=== PATIENT | female | born 1980 | race Caucasian/White ===

== ENCOUNTER → 2016-12-29 | Outpatient (CLI) | payer MEDICAID, OTHER ==
[~2016-12-29] MED LIST: /LANS30GR; /PANT40TA OR; ABIL20TA2 OR; ACET65TA; ACET65TA OR; ACETAZOLAMIDE; ADVA115INH INH; ALBU0.084 IN; ALBUTEROL INH; ALLE25CA; AMOXICILLIN SUSP; ANTI25TA; BACTDSTA PO; BENA25TA4 PO; BISAC5TA PO; CALC12502; CALCCHW12 OR; CELE20TA OR; CEPACOL; CETI10TA3 PO; CLONI1TA PO; COLA100C2; COLA100C2 OR; DEPA500T2; DRIS1CAP PO; FERR325T OR; FOLI1TAB86 PO; HYDR25T OR; HYDROCORTISONE0.5 %; KLON0.5T OR; LEVA500T; LEVO750T PO; MAGN500T2; MAGNESIUM OXIDE PO; MELA5TAB20 PO; MILKSUS; MIRALEX; MULTIVIT PO; MUPI2OI TOP; NAPR375T2 PO; NAPR500T3 PO; NASONEX; NICO21DI4 TD; NICO21PAT TD; PERC7.5T8 PO; PERM5CR EXT; POTA8CAP; PRIL40CA PO; PROAAER IN; PROZ20CA11 PO; Proair INH; SUBO8MIS SL; SYMB80AE; SYMB80AE IN; THERGRAN; THIA100T; THIA100T OR; TRAZ50TA2 PO; TYLE325T5 PO; VENTAER; VENTAER IN; VENTAER INH; VITA100T; VITA100T OR; VITA100T2 PO; VITAMIN B 12; VITAMIN B 12 SC; VITAMIN B COMPLEX WI OR; VITAMIN D; VITAMIN D50000 UNT; ZOLO50TA PO; advair INH; gabapentin PO; symbicort INH; ventolin INH
[2016-12-29 13:32] LABS: MEAN CORPUSCULAR HEMOGLOBIN 31.9 pg (27.0-33.0); MEAN CORPUSCULAR HGB CONC 34.7 g/dl (32.0-36.5); MEAN CORPUSCULAR VOLUME 92.1 fl (80.0-96.0); RED CELL DISTRIBUTION WIDTH 11.9 % (11.5-14.5)
[2016-12-29 14:02] LABS: ALBUMIN 3.7 GM/DL (3.2-5.2); ALBUMIN/GLOBULIN RATIO 1.37 (1.00-1.93); ALKALINE PHOSPHATASE 84 U/L (45-117); ALT/SGPT 26 U/L (12-78); ANION GAP 7 MEQ/L (8-16); AST/SGOT 14 U/L (15-37); BILIRUBIN,TOTAL 0.6 MG/DL (0.2-1.0); BLOOD UREA NITROGEN 7 MG/DL (7-18); CALCIUM LEVEL 9.1 MG/DL (8.5-10.1); CARBON DIOXIDE LEVEL 27 MEQ/L (21-32); CHLORIDE LEVEL 101 MEQ/L (98-107); CREATININE FOR GFR 0.91 MG/DL (0.55-1.02); GLOMERULAR FILTRATION RATE > 60.0 (>60); GLUCOSE, FASTING 79 MG/DL (70-105); POTASSIUM SERUM 3.4 MEQ/L (3.5-5.1); SODIUM LEVEL 135 MEQ/L (136-145); TOTAL PROTEIN 6.4 GM/DL (6.4-8.2)
--- NOTE | 2016-12-30 15:20 | ECGEPIP ---
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 No significant change compared with 12/08/2013. Electronically Signed On 12-30-2016 15:20:11 EDT by Cody Rollins
== END ==
LOC: M LAB 12:52
PROVIDERS: ATTEND Family Medicine
DX: F11.20 Opioid dependence, uncomplicated (principal)

== ENCOUNTER → 2017-03-10 | Outpatient (CLI) | payer OTHER ==
[2017-03-10 08:55] LABS: BASO % 0.7 % (0.0-1.0); EOS # 0.1 K/mm3 (0.0-0.50); EOS % 3.7 % (0.0-3.0); LARGE UNSTAINED CELL # 0.1 K/mm3 (0.0-0.4); LARGE UNSTAINED CELL % 2.3 % (0.0-4.0); LYMPH # 1.1 K/mm3 (1.5-4.5); LYMPH % 34.7 % (24.0-44.0); MEAN CORPUSCULAR HEMOGLOBIN 31.9 pg (27.0-33.0); MEAN CORPUSCULAR HGB CONC 34.9 g/dl (32.0-36.5); MEAN CORPUSCULAR VOLUME 91.4 fl (80.0-96.0); MONO # 0.2 K/mm3 (0.0-0.8); MONO % 5.3 % (0.0-5.0); NEUTROPHILS # 1.6 K/mm3 (1.8-7.7); NEUTROPHILS % 53.2 % (36.0-66.0); PLATELET COUNT, AUTOMATED 167 k/mm3 (150-450); RED CELL DISTRIBUTION WIDTH 11.9 % (11.5-14.5); WHITE BLOOD COUNT 3.1 K/mm3 (4.0-10.0)
--- NOTE | 2017-03-10 09:00 | REP ---
PA and lateral chest: Comparison is 07/16/2013. The lung vazquez are clear. Cardiac size is normal. The bj, mediastinum and bony thorax unremarkable except for a fracture posterior laterally in the left ninth rib. This was not present previously. There is no pneumothorax. Impression: Left ninth rib fracture, not present previously. Otherwise, negative PA and lateral chest. Signed by Quentin Song MD 03/10/2017 08:51 A
[2017-03-10 09:29] LABS: ALBUMIN 3.3 GM/DL (3.2-5.2); ALBUMIN/GLOBULIN RATIO 1.22 (1.00-1.93); ALKALINE PHOSPHATASE 61 U/L (45-117); ALT/SGPT 22 U/L (12-78); ANION GAP 7 MEQ/L (8-16); AST/SGOT 17 U/L (15-37); BILIRUBIN,TOTAL 0.5 MG/DL (0.2-1.0); BLOOD UREA NITROGEN 8 MG/DL (7-18); CALCIUM LEVEL 8.9 MG/DL (8.5-10.1); CARBON DIOXIDE LEVEL 29 MEQ/L (21-32); CHLORIDE LEVEL 109 MEQ/L (98-107); CREATININE FOR GFR 0.68 MG/DL (0.55-1.02); GLOMERULAR FILTRATION RATE > 60.0 (>60); GLUCOSE, FASTING 84 MG/DL (70-105); POTASSIUM SERUM 4.6 MEQ/L (3.5-5.1); SODIUM LEVEL 145 MEQ/L (136-145)
--- NOTE | 2017-03-10 19:46 | ECGEPIP ---
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
== END ==
LOC: M LAB 08:01
PROVIDERS: ATTEND Family Medicine Addiction Medicine
DX: R07.9 Chest pain, unspecified (principal)

== ENCOUNTER → 2017-03-22 | Outpatient (REF) | payer OTHER ==
[2017-03-22 14:24] LABS: ADD MANUAL DIFFER NO; BASO # 0.1 10^3/uL (0.0-0.2); BASO % 1.3 % (0.0-1.0); DIFF SLIDE NUMBER 242; EOS # 0.2 10^3/uL (0.0-0.50); EOS % 3.6 % (0.0-3.0); IMMATURE GRANULOCYTE % 0.2 % (0-0); LYMPH # 1.8 10^3/uL (1.5-4.5); LYMPH % 40.1 % (24.0-44.0); MEAN CORPUSCULAR HEMOGLOBIN 31.1 pg (27.0-33.0); MEAN CORPUSCULAR HGB CONC 33.3 g/dl (32.0-36.5); MEAN CORPUSCULAR VOLUME 93.2 fl (80.0-96.0); MONO # 0.3 10^3/uL (0.0-0.8); MONO % 7.3 % (0.0-5.0); NEUTROPHILS # 2.1 10^3/uL (1.8-7.7); NEUTROPHILS % 47.5 % (36.0-66.0); PLATELET COUNT, AUTOMATED 195 10^3/uL (150-450); RED CELL DISTRIBUTION WIDTH 11.9 % (11.5-14.5); WHITE BLOOD COUNT 4.5 10^3/uL (4.0-10.0)
== END ==
LOC: M LAB REF 12:14
PROVIDERS: ATTEND Family Medicine Addiction Medicine
DX: D72.819 Decreased white blood cell count, unspecified (principal)

== ENCOUNTER → 2017-03-29 | Outpatient (CLI) | payer OTHER ==
[2017-03-31 08:06] LABS: HEPATITIS C QUANTITATION HCV Not Detected IU/mL (.)
== END ==
LOC: M LAB 12:53
PROVIDERS: ATTEND Nurse Practitioner Adult Health
DX: B19.20 Unspecified viral hepatitis C without hepatic coma (principal)

== ENCOUNTER 2017-04-15 08:03 | Emergency (ER) | payer OTHER ==
[~2017-04-15] VITALS: Ht 170.2 cm; Wt 63.6 kg
[~2017-04-15 08:03] MED LIST changes: -CLONI1TA PO; -MELA5TAB20 PO; -NAPR500T3 PO; -SUBO8MIS SL
[2017-04-15] MEDS ORDERED: SUBO8MIS SL (08:31)
[2017-04-15] MEDS ORDERED: CLONI1TA PO (08:31)
[2017-04-15] MEDS ORDERED: MELA5TAB20 PO (08:31)
[2017-04-15] MEDS ORDERED: ACETAMINOPHEN 325 MG TAB PO ONE (09:00)
[2017-04-15 09:17] LABS: BASO % 1.4 % (0.0-1.0); EOS # 0.1 10^3/uL (0.0-0.50); EOS % 3.7 % (0.0-3.0); LYMPH % 35.3 % (24.0-44.0); MEAN CORPUSCULAR HEMOGLOBIN 31.4 pg (27.0-33.0); MEAN CORPUSCULAR HGB CONC 33.8 g/dl (32.0-36.5); MONO # 0.2 10^3/uL (0.0-0.8); MONO % 7.8 % (0.0-5.0); NEUTROPHILS # 1.5 10^3/uL (1.8-7.7); NEUTROPHILS % 51.8 % (36.0-66.0); PLATELET COUNT, AUTOMATED 171 10^3/uL (150-450); RED CELL DISTRIBUTION WIDTH 12.4 % (11.5-14.5)
[2017-04-15 09:54] LABS: ALBUMIN 3.5 GM/DL (3.2-5.2); ALKALINE PHOSPHATASE 70 U/L (45-117); ALT/SGPT 27 U/L (12-78); ANION GAP 7 MEQ/L (8-16); AST/SGOT 26 U/L (15-37); BILIRUBIN,DIRECT 0.1 MG/DL (0.0-0.2); BILIRUBIN,TOTAL 0.3 MG/DL (0.2-1.0); BLOOD UREA NITROGEN 8 MG/DL (7-18); CALCIUM LEVEL 8.7 MG/DL (8.5-10.1); CARBON DIOXIDE LEVEL 27 MEQ/L (21-32); CHLORIDE LEVEL 107 MEQ/L (98-107); CREATININE FOR GFR 0.78 MG/DL (0.55-1.02); GLOMERULAR FILTRATION RATE > 60.0 (>60); GLUCOSE, FASTING 82 MG/DL (70-105); POTASSIUM SERUM 3.9 MEQ/L (3.5-5.1); SODIUM LEVEL 141 MEQ/L (136-145)
[2017-04-15 10:00] LABS: CONTROL LINE HCG INT CTR LINE PRESENT
[2017-04-15] MEDS ORDERED: NAPROXEN 250 MG TAB PO ONE (11:00)
--- NOTE | 2017-04-15 11:00 | REP ---
PELVIC ULTRASOUND: Real-time sonographic evaluation of the pelvis is performed utilized transabdominal and endovaginal technique. Bladder measures 3.6 x 2.0 x 5.9 cm. Uterus measures 9.1 x 4.3 x 6.0 cm. Endometrial stripe measures 3 mm. Right ovary is not visualized. Left ovary measures 5.3 x 4.0 x 3.7 cm and contains a cyst 4.8 x 3.7 x 3.6 cm. There is blood flow seen in the left ovary with duplex Doppler evaluation with RI 0.51. There is no other evidence of adnexal mass or free fluid. IMPRESSION: Right ovary not visualized. Left ovarian cyst measures 4.8 cm in maximum diameter. No torsion or free fluid. Signed by Quentin Modi MD 04/15/2017 05:46 P
[2017-04-15] MEDS ORDERED: NAPR500T3 PO (11:02)
[2017-04-15 12:43] VITALS: BP 127/77
== END 2017-04-15 12:46 | disposition home or self-care (01) ==
LOC: M ED 08:03
DX: N93.9 Abnormal uterine and vaginal bleeding, unspecified (principal); N83.292 Other ovarian cyst, left side; F19.10 Other psychoactive substance abuse, uncomplicated; Z98.84 Bariatric surgery status; F17.200 Nicotine dependence, unspecified, uncomplicated; Z79.899 Other long term (current) drug therapy; Z91.013 Allergy to seafood; Z91.040 Latex allergy status; Z91.89 Other specified personal risk factors, not elsewhere classified; Z88.0 Allergy status to penicillin; Z88.8 Allergy status to other drugs, medicaments and biological substances; Z88.1 Allergy status to other antibiotic agents

== ENCOUNTER 2017-08-13 09:50 | Emergency (ER) | payer OTHER ==
[2017-08-13] MEDS: KETOROLAC 60 MG/2 ML VIAL (J1885) IM (10:17)
== END 2017-08-13 11:36 | disposition home or self-care (01) ==
LOC: M ED 09:50
DX: M53.3 Sacrococcygeal disorders, not elsewhere classified (principal); G93.41 Metabolic encephalopathy; R07.9 Chest pain, unspecified; J45.909 Unspecified asthma, uncomplicated; R42 Dizziness and giddiness; N39.0 Urinary tract infection, site not specified; M54.9 Dorsalgia, unspecified; F91.8 Other conduct disorders; F41.9 Anxiety disorder, unspecified; F32.9 Major depressive disorder, single episode, unspecified; F19.10 Other psychoactive substance abuse, uncomplicated; Z98.84 Bariatric surgery status; F17.200 Nicotine dependence, unspecified, uncomplicated; Z79.899 Other long term (current) drug therapy; Z88.8 Allergy status to other drugs, medicaments and biological substances; Z88.0 Allergy status to penicillin; Z88.1 Allergy status to other antibiotic agents; Z91.013 Allergy to seafood; Z91.040 Latex allergy status; Z91.89 Other specified personal risk factors, not elsewhere classified
CPT/HCPCS: J1885

== ENCOUNTER 2017-08-14 10:33 | Emergency (ER) | payer OTHER ==
[2017-08-14 11:25] LABS: BASO % 0.9 % (0.0-1.0); EOS # 0.1 10^3/uL (0.0-0.50); EOS % 3.3 % (0.0-3.0); HEMATOCRIT 35.8 % (36.0-47.0); HEMOGLOBIN 12.2 g/dl (12.0-16.0); LYMPH # 1.1 10^3/uL (1.5-4.5); LYMPH % 31.5 % (24.0-44.0); MEAN CORPUSCULAR HEMOGLOBIN 31.9 pg (27.0-33.0); MEAN CORPUSCULAR HGB CONC 34.1 g/dl (32.0-36.5); MEAN CORPUSCULAR VOLUME 93.5 fl (80.0-96.0); MONO # 0.2 10^3/uL (0.0-0.8); MONO % 6.8 % (0.0-5.0); NEUTROPHILS # 1.9 10^3/uL (1.8-7.7); NEUTROPHILS % 57.5 % (36.0-66.0); PLATELET COUNT, AUTOMATED 148 10^3/uL (150-450); RED BLOOD COUNT 3.83 10^6/uL (4.00-5.40); WHITE BLOOD COUNT 3.4 10^3/uL (4.0-10.0)
[2017-08-14 11:48] LABS: ALBUMIN 3.7 GM/DL (3.2-5.2); ALBUMIN/GLOBULIN RATIO 1.19 (1.00-1.93); ALKALINE PHOSPHATASE 74 U/L (45-117); ALT/SGPT 17 U/L (12-78); ANION GAP 5 MEQ/L (8-16); AST/SGOT 19 U/L (7-37); BILIRUBIN,TOTAL 0.2 MG/DL (0.2-1.0); BLOOD UREA NITROGEN 10 MG/DL (7-18); CALCIUM LEVEL 8.5 MG/DL (8.5-10.1); CARBON DIOXIDE LEVEL 26 MEQ/L (21-32); CHLORIDE LEVEL 111 MEQ/L (98-107); CREATININE FOR GFR 0.91 MG/DL (0.55-1.30); GLOMERULAR FILTRATION RATE > 60.0 (>60); GLUCOSE, FASTING 75 MG/DL (70-100); POTASSIUM SERUM 4.2 MEQ/L (3.5-5.1); SODIUM LEVEL 142 MEQ/L (136-145); TOTAL PROTEIN 6.8 GM/DL (6.4-8.2)
[2017-08-14] MEDS: CYCLOBENZAPRINE 10 MG TAB PO (11:58)
[2017-08-14] MEDS: KETOROLAC 30 MG/ML VIAL (J1885) IV (12:39)
== END 2017-08-14 13:24 | disposition home or self-care (01) ==
LOC: M ED 10:33
DX: K62.5 Hemorrhage of anus and rectum (principal); M79.1 Myalgia; E46 Unspecified protein-calorie malnutrition; Z98.84 Bariatric surgery status; F17.200 Nicotine dependence, unspecified, uncomplicated; Z91.013 Allergy to seafood; Z88.1 Allergy status to other antibiotic agents; Z88.0 Allergy status to penicillin; Z91.040 Latex allergy status; Z79.899 Other long term (current) drug therapy
CPT/HCPCS: J1885

== ENCOUNTER → 2017-11-17 | Outpatient (REF) | payer OTHER ==
[2017-11-17 20:56] LABS: CHLAMYDIA DNA AMPLIFICATION NEGATIVE (NEGATIVE); GC DNA AMPLIFICATION NEGATIVE (NEGATIVE)
[2017-11-22 14:13] LABS: HPV HYBRID CAPTURE II Negative (Negative)
== END ==
LOC: M LAB REF 18:06
DX: Z11.3 Encounter for screening for infections with a predominantly sexual mode of transmission (principal)

== ENCOUNTER → 2017-12-26 | Outpatient (CLI) | payer OTHER ==
[2017-12-26 12:53] LABS: HEMATOCRIT 35.7 % (36.0-47.0); HEMOGLOBIN 12.1 g/dl (12.0-15.5); MEAN CORPUSCULAR HEMOGLOBIN 31.5 pg (27.0-33.0); MEAN CORPUSCULAR HGB CONC 33.9 g/dl (32.0-36.5); PLATELET COUNT, AUTOMATED 214 10^3/uL (150-450); RED BLOOD COUNT 3.84 10^6/uL (4.00-5.40); WHITE BLOOD COUNT 4.5 10^3/uL (4.0-10.0)
[2017-12-26 13:26] LABS: CONTROL LINE HCG INT CTR LINE PRESENT; HCG, SERUM QUALITATIVE NEGATIVE (NEGATIVE)
[2017-12-26 13:36] LABS: ALBUMIN/GLOBULIN RATIO 1.48 (1.00-1.93); ALKALINE PHOSPHATASE 107 U/L (45-117); ALT/SGPT 23 U/L (12-78); ANION GAP 6 MEQ/L (8-16); AST/SGOT 15 U/L (7-37); BILIRUBIN,TOTAL 0.4 MG/DL (0.2-1.0); BLOOD UREA NITROGEN 13 MG/DL (7-18); CALCIUM LEVEL 8.5 MG/DL (8.5-10.1); CARBON DIOXIDE LEVEL 28 MEQ/L (21-32); CHLORIDE LEVEL 108 MEQ/L (98-107); CREATININE FOR GFR 1.01 MG/DL (0.55-1.30); GLOMERULAR FILTRATION RATE > 60.0 (>60); GLUCOSE, FASTING 92 MG/DL (70-100); POTASSIUM SERUM 3.7 MEQ/L (3.5-5.1); SODIUM LEVEL 142 MEQ/L (136-145); TOTAL PROTEIN 6.7 GM/DL (6.4-8.2)
[2017-12-26 13:47] LABS: HEPATITIS B SURFACE ANTIGEN NEGATIVE (NEGATIVE)
[2017-12-26 14:15] LABS: HIV 1&2 SCREEN CENTAUR NEGATIVE (NEGATIVE)
[2017-12-26 14:16] LABS: HEPATITIS C VIRUS ABY INDEX > 11.0 INDEX (<0.8)
[2017-12-26 14:40] LABS: CHLAMYDIA DNA AMPLIFICATION NEGATIVE (NEGATIVE); GC DNA AMPLIFICATION NEGATIVE (NEGATIVE)
== END ==
LOC: M LAB 12:03
DX: F11.20 Opioid dependence, uncomplicated (principal)
CPT/HCPCS: 93005

== ENCOUNTER 2018-04-30 12:37 | Emergency (ER) | payer OTHER ==
[2018-04-30] MEDS: METHOCARBAMOL 750 MG TAB PO (14:24)
[2018-04-30] MEDS: KETOROLAC 60 MG/2 ML VIAL (J1885) IM (14:25)
== END 2018-04-30 14:35 | disposition home or self-care (01) ==
LOC: M ED 12:37
DX: M54.41 Lumbago with sciatica, right side (principal); J45.909 Unspecified asthma, uncomplicated; F41.9 Anxiety disorder, unspecified; F33.9 Major depressive disorder, recurrent, unspecified; B19.20 Unspecified viral hepatitis C without hepatic coma; G93.41 Metabolic encephalopathy; Z79.899 Other long term (current) drug therapy; Z79.891 Long term (current) use of opiate analgesic; Z88.0 Allergy status to penicillin; Z88.8 Allergy status to other drugs, medicaments and biological substances; Z91.018 Allergy to other foods; Z91.040 Latex allergy status; F17.210 Nicotine dependence, cigarettes, uncomplicated
CPT/HCPCS: J1885

== ENCOUNTER → 2018-05-23 | Outpatient (CLI) | payer OTHER ==
[2018-05-23 17:30] LABS: ESTIMATED AVERAGE GLUCOSE 100 MG/DL (60-110); HEMOGLOBIN A1c 5.1 %
[2018-05-23 17:34] LABS: BASO # 0.1 10^3/uL (0.0-0.2); BASO % 0.6 % (0.0-1.0); EOS # 0.1 10^3/uL (0.0-0.50); HEMATOCRIT 39.1 % (36.0-47.0); IMMATURE GRANULOCYTE % 0.2 % (0-3.0); LYMPH # 1.8 10^3/uL (1.5-4.5); LYMPH % 22.4 % (24.0-44.0); MEAN CORPUSCULAR HEMOGLOBIN 31.3 pg (27.0-33.0); MEAN CORPUSCULAR HGB CONC 33.2 g/dl (32.0-36.5); MEAN CORPUSCULAR VOLUME 94.2 fl (80.0-96.0); MONO # 0.5 10^3/uL (0.0-0.8); MONO % 6.2 % (0.0-5.0); NEUTROPHILS # 5.6 10^3/uL (1.8-7.7); NEUTROPHILS % 69.6 % (36.0-66.0); PLATELET COUNT, AUTOMATED 199 10^3/uL (150-450); RED BLOOD COUNT 4.15 10^6/uL (4.00-5.40); WHITE BLOOD COUNT 8.1 10^3/uL (4.0-10.0)
[2018-05-23 17:51] LABS: ALBUMIN 3.3 GM/DL (3.2-5.2); ALBUMIN/GLOBULIN RATIO 1.14 (1.00-1.93); ALKALINE PHOSPHATASE 62 U/L (45-117); ALT/SGPT 17 U/L (12-78); ANION GAP 5 MEQ/L (8-16); AST/SGOT 16 U/L (7-37); BILIRUBIN,TOTAL 0.3 MG/DL (0.2-1.0); BLOOD UREA NITROGEN 11 MG/DL (7-18); CALCIUM LEVEL 8.5 MG/DL (8.5-10.1); CARBON DIOXIDE LEVEL 31 MEQ/L (21-32); CHLORIDE LEVEL 108 MEQ/L (98-107); CREATININE FOR GFR 0.94 MG/DL (0.55-1.30); GLOMERULAR FILTRATION RATE > 60.0 (>60); GLUCOSE, FASTING 49 MG/DL (70-100); POTASSIUM SERUM 4.3 MEQ/L (3.5-5.1); RHEUMATOID FACTOR QUANT < 10.0 IU/ML (<15.0); SODIUM LEVEL 144 MEQ/L (136-145); TOTAL PROTEIN 6.2 GM/DL (6.4-8.2)
[2018-05-25 14:16] LABS: ANTINUCLEAR ANTIBODIES DIRECT Negative (Negative)
== END ==
LOC: M LAB 16:19
DX: R20.2 Paresthesia of skin (principal); Z13.9 Encounter for screening, unspecified
CPT/HCPCS: 84443

== ENCOUNTER 2018-06-14 13:38 | Emergency (ER) | payer OTHER ==
[~2018-06-14] VITALS: Ht 170.2 cm; Wt 59.4 kg
[~2018-06-14 13:38] MED LIST changes: +ARNU1INH3 INH; +BUSP1TAB PO; +CLONI1TA PO; +CYCL10TA PO; +DOCU100C16 PO; +IBUP80TA PO; +MELA5TAB20 PO; +NAPR-885 PO; +PARO15TA PO; +ROBA500T PO; +SUBO8MIS SL
[2018-06-14] MEDS ORDERED: MIRT30TA3 (13:46)
[2018-06-14] MEDS ORDERED: ESTR62CR (13:46)
[2018-06-14] MEDS ORDERED: OMEP20CA3 (13:46)
[2018-06-14 14:24] LABS: BASO % 0.8 % (0.0-1.0); EOS # 0.1 10^3/uL (0.0-0.50); EOS % 1.4 % (0.0-3.0); HEMATOCRIT 34.5 % (36.0-47.0); HEMOGLOBIN 11.7 g/dl (12.0-15.5); LYMPH # 1.1 10^3/uL (1.5-4.5); LYMPH % 23.4 % (24.0-44.0); MEAN CORPUSCULAR HEMOGLOBIN 31.6 pg (27.0-33.0); MEAN CORPUSCULAR HGB CONC 33.9 g/dl (32.0-36.5); MEAN CORPUSCULAR VOLUME 93.2 fl (80.0-96.0); MONO # 0.3 10^3/uL (0.0-0.8); MONO % 6.2 % (0.0-5.0); NEUTROPHILS # 3.3 10^3/uL (1.8-7.7); NEUTROPHILS % 67.8 % (36.0-66.0); PLATELET COUNT, AUTOMATED 172 10^3/uL (150-450); WHITE BLOOD COUNT 4.8 10^3/uL (4.0-10.0)
[2018-06-14 14:46] LABS: BLOOD UREA NITROGEN 11 MG/DL (7-18); CALCIUM LEVEL 8.4 MG/DL (8.5-10.1); CARBON DIOXIDE LEVEL 29 MEQ/L (21-32); CHLORIDE LEVEL 111 MEQ/L (98-107); CREATININE FOR GFR 0.87 MG/DL (0.55-1.30); GLOMERULAR FILTRATION RATE > 60.0 (>60); GLUCOSE, FASTING 96 MG/DL (70-100); POTASSIUM SERUM 4.3 MEQ/L (3.5-5.1); SODIUM LEVEL 144 MEQ/L (136-145)
[2018-06-14 15:09] LABS: HCG, SERUM QUANTITATIVE < 1.0 MIU/ML
[2018-06-14] MEDS ORDERED: KETOROLAC TROMETHAMINE 10 MG TAB PO ONE (16:00)
--- NOTE | 2018-06-14 17:08 | REP ---
Clinical: Acute left lower quadrant pain and abnormal bleeding . Technique: Transabdominal pelvic ultrasound followed by transvaginal examination for better evaluation of the endometrium and adnexa with color Doppler evaluation of the ovaries. Findings: Bladder is collapsed. Heterogeneous anteverted uterus measures 8.6 x 4.8 x 5.5 cm . The endometrial complex measures 5.1 mm thickness. No discrete uterine or endometrial abnormalities are appreciated. Bilateral ovaries are normal in appearance and vascularity without evidence for torsion. Right ovary measures 1.8 x 1.3 x 2.2 cm ; R I = 0.59 . Left ovary measures 3.4 x 2.6 x 3.9 cm with 3.3 x 1.6 x 2.6 cm hemorrhagic cyst ; R I = 0.5. Small amount of free fluid in the pelvis. . Impression: 1. Normal uterus and right ovary without torsion. 2. Left ovary includes 3.3 cm hemorrhagic cyst and a moderate amount of free fluid is identified in the pelvis. Correlation with physical examination is recommended. Electronically Signed by Anatoly Prado MD 06/14/2018 05:00 P
[2018-06-14] MEDS ORDERED: KETO10TAB PO (17:15)
[2018-06-14] MEDS ORDERED: CIPR-249 PO (17:15)
[2018-06-14 17:26] VITALS: BP 101/68
--- NOTE | 2018-06-17 08:33 | ED PDOC ---
Post-Departure Follow-Up radiology report faxed to Kenisha Martinez MD Jun 17, 2018 08:33
== END 2018-06-14 17:30 | disposition home or self-care (01) ==
LOC: M ED 13:38
DX: N30.90 Cystitis, unspecified without hematuria (principal); N83.202 Unspecified ovarian cyst, left side; J45.909 Unspecified asthma, uncomplicated; B19.20 Unspecified viral hepatitis C without hepatic coma; Z98.84 Bariatric surgery status; Z79.899 Other long term (current) drug therapy; Z88.0 Allergy status to penicillin; Z88.1 Allergy status to other antibiotic agents; Z88.8 Allergy status to other drugs, medicaments and biological substances; Z91.013 Allergy to seafood; Z91.040 Latex allergy status; F17.210 Nicotine dependence, cigarettes, uncomplicated

== ENCOUNTER → 2018-07-05 | Outpatient (CLI) | payer OTHER ==
[~2018-07-05] MED LIST changes: +CIPR-249 PO; +ESTR62CR; +KETO10TAB PO; +MIRT30TA3; +OMEP20CA3
[2018-07-05 13:37] LABS: HCG, SERUM QUALITATIVE NEGATIVE (NEGATIVE)
[2018-07-05 13:37] LABS: HEMATOCRIT 38.4 % (36.0-47.0); HEMOGLOBIN 12.6 g/dl (12.0-15.5); MEAN CORPUSCULAR HGB CONC 32.8 g/dl (32.0-36.5); MEAN CORPUSCULAR VOLUME 94.3 fl (80.0-96.0); PLATELET COUNT, AUTOMATED 128 10^3/uL (150-450); RED BLOOD COUNT 4.07 10^6/uL (4.00-5.40); WHITE BLOOD COUNT 4.8 10^3/uL (4.0-10.0)
[2018-07-05 13:56] LABS: FOLLICLE STIMULATING HORMONE 4.5 mIU/mL; FREE T4 1.25 NG/DL (0.76-1.46); LUTEINIZING HORMONE 19.4 mIU/mL
== END ==
LOC: M SMT 10:39
PROVIDERS: ATTEND Advanced Practice Midwife
DX: N92.4 Excessive bleeding in the premenopausal period (principal)

== ENCOUNTER → 2018-07-18 | Outpatient (CLI) | payer OTHER ==
--- NOTE | 2018-07-18 16:43 | REP ---
PELVIC ULTRASOUND: Real-time sonographic evaluation of the pelvis was performed utilizing transabdominal and endovaginal technique. The bladder measures 2.0 x 5.6 x 4.9 cm. The uterus measures 9.3 x 4.7 x 5.9 cm. Endometrial thickness is 6 mm with no endometrial fluid collection. Right ovary measures 3.2 x 1.7 x 2.0 cm and left ovary 3.9 x 2.1 x 2.4 cm. Dominant follicle in the right ovary measures 9 mm. There is a complex follicle in the left ovary 1.2 cm in diameter. Previously noted 3.3 cm left ovarian cyst has resolved. There is trace physiologic amount of free fluid. There os no ovarian torsion with blood flow seen in each ovary with duplex Doppler evaluation, RI ovary 0.41 and left ovary 0.47. IMPRESSION: Resolution of complex cyst left ovary. Dominant follicle in each ovary. Trace physiologic amount of free fluid. Electronically Signed by Quentin Modi MD 07/18/2018 04:48 P
== END ==
LOC: M RAD 15:33
PROVIDERS: ATTEND Advanced Practice Midwife
DX: N92.4 Excessive bleeding in the premenopausal period (principal)

== ENCOUNTER → 2018-07-19 | Outpatient (REF) | payer OTHER | LOC: M LAB REF 10:31 | PROVIDERS: ATTEND Advanced Practice Midwife | DX: N92.4 Excessive bleeding in the premenopausal period (principal) ==

== ENCOUNTER → 2018-10-04 | Outpatient (REF) | payer OTHER ==
[~2018-10-04] MED LIST changes: -/PANT40TA OR; -BACTDSTA PO; +MUPI1OIN2 TOP; -MUPI2OI TOP; +NICO21DI3 TD; -NICO21PAT TD; -PERM5CR EXT; +PERM5CRE3 EXT; +PROT1TAB2 OR; +SULF1TAB23 PO
[2018-10-04 13:53] LABS: BASO # 0.1 10^3/uL (0.0-0.2); BASO % 1.4 % (0.0-1.0); EOS # 0.1 10^3/uL (0.0-0.50); EOS % 3.5 % (0.0-3.0); HEMATOCRIT 37.8 % (36.0-47.0); HEMOGLOBIN 12.6 g/dl (12.0-15.5); LYMPH # 1.1 10^3/uL (1.5-4.5); MEAN CORPUSCULAR HEMOGLOBIN 30.5 pg (27.0-33.0); MEAN CORPUSCULAR HGB CONC 33.3 g/dl (32.0-36.5); MEAN CORPUSCULAR VOLUME 91.5 fl (80.0-96.0); MONO # 0.2 10^3/uL (0.0-0.8); MONO % 6.5 % (0.0-5.0); NEUTROPHILS # 2.2 10^3/uL (1.8-7.7); NEUTROPHILS % 59.6 % (36.0-66.0); PLATELET COUNT, AUTOMATED 179 10^3/uL (150-450); RED BLOOD COUNT 4.13 10^6/uL (4.00-5.40); WHITE BLOOD COUNT 3.7 10^3/uL (4.0-10.0)
[2018-10-04 14:05] LABS: ALBUMIN 3.3 GM/DL (3.2-5.2); ALT/SGPT 21 U/L (12-78); BILIRUBIN,TOTAL 0.2 MG/DL (0.2-1.0); BLOOD UREA NITROGEN 15 MG/DL (7-18); CARBON DIOXIDE LEVEL 24 MEQ/L (21-32); CHLORIDE LEVEL 111 MEQ/L (98-107); CHOLESTEROL LEVEL 135 MG/DL (<200); CHOLESTEROL RISK RATIO 2.596 (<5); CREATININE FOR GFR 0.96 MG/DL (0.55-1.30); GLOMERULAR FILTRATION RATE > 60.0 (>60); GLUCOSE, FASTING 120 MG/DL (70-100); HDL CHOLESTEROL 52 MG/DL (>40); LDL CHOLESTEROL 61 MG/DL (<100); NON-HDL-C 83 MG/DL; POTASSIUM SERUM 3.9 MEQ/L (3.5-5.1); SODIUM LEVEL 141 MEQ/L (136-145); TOTAL 25(OH) VITAMIN D 22.7 NG/ML (30.0-100.0); TOTAL PROTEIN 5.7 GM/DL (6.4-8.2); TRIGLYCERIDES LEVEL 109 MG/DL (<150)
[2018-10-04 14:22] LABS: HEMOGLOBIN A1c 5.3 %
[2018-10-06 00:06] LABS: Lyme Disease IgG/IgM Antibodie <0.91 ISR (0.00-0.90); Lyme Disease IgM Ab Quantitati <0.80 index (0.00-0.79)
== END ==
LOC: M LAB REF 12:19
PROVIDERS: ATTEND Family Medicine
DX: Z13.228 Encounter for screening for other metabolic disorders (principal)

== ENCOUNTER → 2018-12-18 | Outpatient (CLI) | payer OTHER ==
[~2018-12-18] MED LIST changes: -OMEP20CA3; +OMEP20CA4
--- NOTE | 2018-12-18 17:49 | REP ---
Clinical: Abnormal uterine bleeding. Technique: Transabdominal pelvic ultrasound followed by transvaginal examination for better evaluation of the endometrium and adnexa with color Doppler evaluation of the ovaries. Comparison: 07/18/2018. Findings: Heterogeneous anteverted uterus measures 8.8 x 4.8 x 5.3 cm. Endometrial complex measures 4.0 mm thickness. No uterine or endometrial abnormalities appreciated. Bilateral ovaries are normal in vascularity without torsion. Right ovary measures 3.4 x 1.8 x 2.2 cm; RI 0.52. Left ovary measures 6.4 x 3.3 x 3.8 cm; RI 0.55 and includes 4.0 x 2.5 x 3.4 cm complex cyst. Small amount of free fluid in the pelvis is nonspecific and possibly physiologic. Impression: 1. Heterogeneous uterus without focal abnormality. Appears similar to prior examination. 2. Left ovary includes 4.0 cm possibly physiologic complex cyst. Consider follow-up examination in 4-6 weeks to evaluate for resolution. Electronically Signed by Anatoly Prado MD 12/18/2018 05:41 P
== END ==
LOC: M RAD 15:55
PROVIDERS: ATTEND Advanced Practice Midwife
DX: N92.4 Excessive bleeding in the premenopausal period (principal)

== ENCOUNTER → 2018-12-18 | Outpatient (CLI) | payer OTHER ==
[~2018-12-18] MED LIST changes: +OMEP1CAP73; -OMEP20CA4; +TYLE650T38 PO
[2018-12-18 16:44] LABS: HEMATOCRIT 35.1 % (36.0-47.0); HEMOGLOBIN 11.4 g/dl (12.0-15.5); MEAN CORPUSCULAR HEMOGLOBIN 31.1 pg (27.0-33.0); MEAN CORPUSCULAR HGB CONC 32.5 g/dl (32.0-36.5); MEAN CORPUSCULAR VOLUME 95.6 fl (80.0-96.0); PLATELET COUNT, AUTOMATED 170 10^3/uL (150-450); RED BLOOD COUNT 3.67 10^6/uL (4.00-5.40); WHITE BLOOD COUNT 3.4 10^3/uL (4.0-10.0)
[2018-12-18 17:12] LABS: HCG, SERUM QUALITATIVE NEGATIVE (NEGATIVE)
[2018-12-18 17:14] LABS: ALBUMIN 3.1 GM/DL (3.2-5.2); ALT/SGPT 11 U/L (12-78); BILIRUBIN,TOTAL 0.2 MG/DL (0.2-1.0); BLOOD UREA NITROGEN 8 MG/DL (7-18); CALCIUM LEVEL 8.5 MG/DL (8.5-10.1); CARBON DIOXIDE LEVEL 28 MEQ/L (21-32); CHLORIDE LEVEL 109 MEQ/L (98-107); CREATININE FOR GFR 1.09 MG/DL (0.55-1.30); GLOMERULAR FILTRATION RATE 59.5 (>60); GLUCOSE, FASTING 100 MG/DL (70-100); POTASSIUM SERUM 3.9 MEQ/L (3.5-5.1); SODIUM LEVEL 141 MEQ/L (136-145)
[2018-12-18 18:02] LABS: HIV 1&2 SCREEN CENTAUR NEGATIVE (NEGATIVE)
[2018-12-18 18:26] LABS: CHLAMYDIA DNA AMPLIFICATION NEGATIVE (NEGATIVE); GC DNA AMPLIFICATION NEGATIVE (NEGATIVE)
--- NOTE | 2018-12-19 07:53 | ECGEPIP ---
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
[2018-12-20 10:54] LABS: HEPATITIS B SURFACE ANTIGEN NEGATIVE (NEGATIVE)
[2018-12-20 11:39] LABS: HEPATITIS C VIRUS ABY INDEX > 11.0 INDEX (<0.8)
== END ==
LOC: M LAB 16:10
PROVIDERS: ATTEND Family Medicine
DX: F11.21 Opioid dependence, in remission (principal)

== ENCOUNTER → 2019-01-12 | Outpatient (REF) | payer OTHER, MEDICAID ==
[~2019-01-12] MED LIST changes: -OMEP1CAP73; +OMEP20CA4
[2019-01-12 19:48] LABS: APPEARANCE, URINE CLOUDY (CLEAR); BACTERIA, URINE AUTO NEGATIVE (NEGATIVE); BILIRUBIN, URINE AUTO NEGATIVE (NEGATIVE); BLOOD, URINE BLOOD NEGATIVE (NEGATIVE); COLOR, URINE AMBER (YELLOW); GLUCOSE, URINE (UA) AUTO NEGATIVE (NEGATIVE); KETONE, URINE AUTO TRACE mg/dL (NEGATIVE); LEUKOCYTE ESTERASE, URINE AUTO NEGATIVE (NEGATIVE); MUCUS, URINE SMALL (NEGATIVE); NITRITE, URINE AUTO NEGATIVE (NEGATIVE); PROTEIN, URINE AUTO NEGATIVE (NEGATIVE); RBC, URINE AUTO 2 /HPF (0-3); SPECIFIC GRAVITY URINE AUTO 1.026 (1.002-1.035); SQUAMOUS EPITHELIAL CELL UR AU 7 /HPF (0-6); WBC, URINE AUTO 4 /HPF (0-3)
== END ==
LOC: M LAB REF 18:31
PROVIDERS: ATTEND Family Medicine
DX: R10.814 Left lower quadrant abdominal tenderness (principal)

== ENCOUNTER 2019-01-16 11:53 | Emergency (ER) | payer MEDICAID, OTHER ==
[~2019-01-16] VITALS: Ht 170.2 cm; Wt 61.4 kg
[~2019-01-16 11:53] MED LIST changes: -TYLE650T38 PO
[2019-01-16 14:43] VITALS: BP 106/70
[2019-01-16] MEDS ORDERED: ACETAMINOPHEN 325 MG TAB PO ONE (15:45)
[2019-01-16] MEDS ORDERED: METHOCARBAMOL 500 MG TAB PO ONE (15:45)
[2019-01-16] MEDS ORDERED: ROBA500T PO (17:15)
[2019-01-16] MEDS ORDERED: TYLE650T38 PO (17:15)
== END 2019-01-16 17:23 | disposition home or self-care (01) ==
LOC: M ED 11:53
DX: M54.5 Low back pain (principal); G89.29 Other chronic pain; B19.9 Unspecified viral hepatitis without hepatic coma; Z98.84 Bariatric surgery status; Z88.1 Allergy status to other antibiotic agents; Z88.0 Allergy status to penicillin; Z88.8 Allergy status to other drugs, medicaments and biological substances; Z91.040 Latex allergy status; Z91.013 Allergy to seafood

== ENCOUNTER → 2019-02-01 | Outpatient (CLI) | payer OTHER ==
[~2019-02-01] MED LIST changes: +TYLE650T38 PO
--- NOTE | 2019-02-01 21:21 | REPVR ---
EXAM: MR Lumbar Spine Without Contrast. EXAM DATE/TIME: 02/01/2019 7:12 PM CLINICAL HISTORY: 38 years old, female; Patient HX: Low back pain, unbalanced gait TECHNIQUE: Imaging protocol: Multiplanar magnetic resonance images of the lumbar spine without intravenous contrast. COMPARISON: No relevant prior studies available. FINDINGS: Vertebrae: There is no fracture. Lumbar vertebra maintain their height and alignment. STIR images demonstrate no evidence of vertebral bone marrow edema or marrow infiltrating lesion. Spinal cord: The lower thoracic spinal cord, conus and cauda equina are normal. L1-L2: No significant disc disease. No significant spinal stenosis. L2-L3: No significant disc disease. No significant spinal stenosis. L3-L4: No significant disc disease. No significant spinal stenosis. L4-L5: No significant disc disease. No significant spinal stenosis. Mild facet and ligament hypertrophy. L5-S1: No significant disc disease. No significant spinal stenosis. Soft tissues: There is no paraspinous or intraspinal mass, hemorrhage or fluid collection. IMPRESSION: 1. No evidence of fracture or acute findings. 2. No evidence of spinal stenosis or significant disc disease. Electronically signed by: Benjamin Byrd On 02/01/2019 21:21:19 PM
== END ==
LOC: M RAD 17:20
PROVIDERS: ATTEND Family Medicine
DX: M54.5 Low back pain (principal)

== ENCOUNTER → 2019-04-17 | Outpatient (REF) | payer OTHER ==
[2019-04-17 18:08] LABS: BASO % 0.9 % (0.0-1.0); EOS # 0.1 10^3/uL (0.0-0.5); EOS % 1.5 % (0.0-3.0); HEMATOCRIT 38.3 % (36.0-47.0); HEMOGLOBIN 12.7 g/dl (12.0-15.5); LYMPH # 1.1 10^3/uL (1.5-5.0); LYMPH % 24.4 % (24.0-44.0); MEAN CORPUSCULAR HEMOGLOBIN 31.4 pg (27.0-33.0); MEAN CORPUSCULAR HGB CONC 33.2 g/dl (32.0-36.5); MEAN CORPUSCULAR VOLUME 94.6 fl (80.0-96.0); MONO # 0.2 10^3/uL (0.0-0.8); MONO % 4.8 % (0.0-5.0); NEUTROPHILS # 3.2 10^3/uL (1.5-8.5); NEUTROPHILS % 68.2 % (36.0-66.0); PLATELET COUNT, AUTOMATED 198 10^3/uL (150-450); RED BLOOD COUNT 4.05 10^6/uL (4.00-5.40); WHITE BLOOD COUNT 4.6 10^3/uL (4.0-10.0)
[2019-04-17 18:22] LABS: ALBUMIN 3.7 GM/DL (3.2-5.2); ALT/SGPT 16 U/L (12-78); BILIRUBIN,TOTAL 0.5 MG/DL (0.2-1.0); BLOOD UREA NITROGEN 8 MG/DL (7-18); CALCIUM LEVEL 9.1 MG/DL (8.5-10.1); CARBON DIOXIDE LEVEL 29 MEQ/L (21-32); CHLORIDE LEVEL 106 MEQ/L (98-107); CREATININE FOR GFR 1.04 MG/DL (0.55-1.30); FREE T4 1.11 NG/DL (0.76-1.46); GLOMERULAR FILTRATION RATE > 60.0 (>60); GLUCOSE, FASTING 92 MG/DL (70-100); POTASSIUM SERUM 5.1 MEQ/L (3.5-5.1); SODIUM LEVEL 139 MEQ/L (136-145); TOTAL PROTEIN 6.5 GM/DL (6.4-8.2); TOTAL T3 135.2 NG/DL (60.0-181.0)
[2019-04-20 00:09] LABS: TESTOSTERONE FREE (DIRECT) 0.4 pg/mL (0.0-4.2)
== END ==
LOC: M LAB REF 16:22
PROVIDERS: ATTEND Nurse Practitioner Family
DX: L63.9 Alopecia areata, unspecified (principal)

== ENCOUNTER → 2019-08-10 | Outpatient (CLI) | payer OTHER ==
[~2019-08-10] MED LIST changes: +OMEP1CAP73; -OMEP20CA4
[2019-08-10 15:12] LABS: HEMATOCRIT 37.9 % (36.0-47.0); HEMOGLOBIN 12.4 g/dl (12.0-15.5); MEAN CORPUSCULAR HEMOGLOBIN 31.6 pg (27.0-33.0); MEAN CORPUSCULAR HGB CONC 32.7 g/dl (32.0-36.5); MEAN CORPUSCULAR VOLUME 96.4 fl (80.0-96.0); PLATELET COUNT, AUTOMATED 152 10^3/uL (150-450); RED BLOOD COUNT 3.93 10^6/uL (4.00-5.40); WHITE BLOOD COUNT 4.5 10^3/uL (4.0-10.0)
[2019-08-10 15:47] LABS: THYROID STIMULATING HORMONE 2.07 uIU/ML (0.358-3.740)
== END ==
LOC: M LAB 14:29
PROVIDERS: ATTEND Dermatology
DX: R53.83 Other fatigue (principal)

== ENCOUNTER 2020-02-28 12:58 | Emergency (ER) | payer OTHER ==
[~2020-02-28] VITALS: Ht 170.2 cm; Wt 52.3 kg
[~2020-02-28 12:58] MED LIST changes: +CYCL-707 PO; -CYCL10TA PO; -PARO15TA PO; +PARO30TA4 PO
[2020-02-28] MEDS ORDERED: ALBU8.5H (13:06)
[2020-02-28] MEDS ORDERED: MELO7.5T35 (13:06)
[2020-02-28] MEDS ORDERED: DERMABOND TOPICAL SKIN ADHESIVE TOP ONE (14:15)
[2020-02-28 14:21] VITALS: BP 126/68
== END 2020-02-28 14:40 | disposition home or self-care (01) ==
LOC: M ED 12:58
DX: S61.412A Laceration without foreign body of left hand, initial encounter (principal); W25.XXXA Contact with sharp glass, initial encounter; Y92.000 Kitchen of unspecified non-institutional (private) residence as the place of occurrence of the external cause; Y93.G1 Activity, food preparation and clean up; J45.909 Unspecified asthma, uncomplicated; B18.2 Chronic viral hepatitis C; F19.10 Other psychoactive substance abuse, uncomplicated; Z88.0 Allergy status to penicillin; Z88.8 Allergy status to other drugs, medicaments and biological substances; Z91.040 Latex allergy status; Z91.013 Allergy to seafood; Z79.51 Long term (current) use of inhaled steroids; Z79.899 Other long term (current) drug therapy

== ENCOUNTER → 2020-03-14 | Outpatient (CLI) | payer OTHER ==
[~2020-03-14] MED LIST changes: +ALBU8.5H; +MELO7.5T35
[2020-03-14 14:10] LABS: BASO % 0.8 % (0.0-1.0); EOS # 0.1 10^3/uL (0.0-0.5); EOS % 2.6 % (0.0-3.0); HEMOGLOBIN 12.4 g/dl (12.0-15.5); LYMPH # 1.2 10^3/uL (1.5-5.0); LYMPH % 23.2 % (24.0-44.0); MEAN CORPUSCULAR HEMOGLOBIN 32.3 pg (27.0-33.0); MEAN CORPUSCULAR HGB CONC 33.5 g/dl (32.0-36.5); MEAN CORPUSCULAR VOLUME 96.4 fl (80.0-96.0); MONO # 0.3 10^3/uL (0.0-0.8); NEUTROPHILS # 3.4 10^3/uL (1.5-8.5); PLATELET COUNT, AUTOMATED 171 10^3/uL (150-450); RED BLOOD COUNT 3.84 10^6/uL (4.00-5.40); WHITE BLOOD COUNT 5.1 10^3/uL (4.0-10.0)
[2020-03-14 14:45] LABS: ERYTHROCYTE SEDIMENTATION RATE 11 mm/hr (0-20)
== END ==
LOC: M LAB 12:50
PROVIDERS: ATTEND Physician Assistant Medical
DX: M25.531 Pain in right wrist (principal)

== ENCOUNTER 2020-07-25 13:00 | Emergency (ER) | payer OTHER ==
[~2020-07-25] VITALS: Ht 170.2 cm; Wt 52.3 kg
--- OUTSIDE RECORDS SUMMARY | 2020-07-25 13:10 | CCD ---
Author Organization Unknown Address [address] [place] [address] Phone [phone] Care Team Providers Care Clinical Reviewer Name Role Phone Narendra Tom Unavailable Unavailable Allergies Code Code System Name Reaction Severity Status Onset 138236 RxNorm Cabbage Active 08/19/2015 Penicillin Active 08/19/2015 Notes: FISH - Reaction: throat swells | BEE STINGS - Reaction: throat swells Medications Name Status Start Date Stop Date acetaminophen 500 mg tablet Active Not available albuterol sulfate HFA 90 mcg/actuation aerosol inhaler Active Not available buprenorphine 12 mg-naloxone 3 mg sublin gual film PLACE ONE FILM UNDER THE TONGUE EVERY DAY MAXIMUM DAILY DOSE 1 Active Not available buprenorphine 8 mg-naloxone 2 mg sublingual film Active Not available buspirone 15 mg tablet Active Not avail able d3-1000 25 mcg (1000 ut) caps Active N ot available epinephrine 0.3 mg/0.3 mL injection, auto-injector Active Not available estradiol 0.01% (0.1 mg/gram) vaginal cream Active Not available ferrous gluconate 324 mg (38 mg iron) tablet Active Not available ibuprofen 600 mg tablet TAKE ONE TABLET BY MOUTH FOUR TIMES A DAY NEEDED Active Not available ibuprofen 800 mg tablet Active Not avai lable Mapap (acetaminophen) 500 mg capsule Active Not available meloxicam 7.5 mg tablet Active Not avai lable methylprednisolone 4 mg tablets in a dose pack Active Not available mirtazapine 30 mg tablet Active Not sonya ilable mupirocin 2 % topical ointment Active N ot available naproxen 500 mg tablet Active Not avail able nicotine (polacrilex) 4 mg gum Active N ot available oxcarbazepine 150 mg tablet Active Not available venlafaxine ER 37.5 mg capsule,extended release 24 hr Active Not available Vitamin D3 25 mcg (1,000 unit) tablet Active Not available Problems Name Status Onset Date Source Viral Hepatitis C Active 08/19/2015 History Opioid Dependence Active 08/19/2015 History Asthma Active 08/19/2015 History Influenza Vaccine Needed Active 08/19/2015 History Tobacco Use and Exposure - Finding Active 08/19/2015 History Memory Finding Active 08/19/[address] Concept Active 08/19/2015 History Exposure to Second Hand Tobacco Smoke Active 12/30/2016 History Syphilis Test Finding Active 12/30/2016 History Finding Related to Sleep Active 01/03/2017 History Body Measurement Finding Active 03/29/2017 History Chronic Tension-type Headache Active 04/21/2017 Hi story Abnormal Uterine Bleeding Active 04/21/2017 Histor y Generalized Anxiety Disorder Active 08/15/2017 His tory Sciatica Active 08/15/2017 History Screening for Malignant Neoplasm of Cervix Active 11/17 History Finding Related to Sleep Active 12/06/2017 History Vaginolabial Hernia Active 12/29/2017 History Epigastric Pain Active 02/09/2018 History Tingling of Skin Active 05/23/2018 History Clinical Finding Active 05/23/2018 History Endocrine/metabolic Screening Active 09/11/2018 Hi story Lateral Epicondylitis of Right Humerus Active 9 History Acute Bronchitis Active 01/12/2019 History Tenderness of Left Lower Quadrant of Abdomen Active History Disorder of Ovary Active 01/12/2019 History Low Back Pain Active 01/23/2019 History Left Upper Quadrant Pain Active 03/26/2019 History Rebound Tenderness of Epigastrium Active 03/26/2019 History Alopecia Areata Active 04/17/2019 History Female Genitalia Finding Active 07/24/2019 History Procedures Notes: Gastric Bypass, Gallbladder, Feed ing tube, Tubal ligation Results Lab Results None recorded. Past Encounters 05/13/2020 Exposure to SARS-CoV-2 Narendra Tom MD: [address] [place] [address], Ph. 04/22/2020 Opioid Dependence; Low Back Pain Narendra Tom MD: [address] [place] [address], Ph. Social History Tobacco Smoking Status Heavy Tobacco Smoker (1 1/2 PPD) Vaccine List Vaccine Type influenza, seasonal, injectable 08/19/20150.5 mL Tdap 08/19/20150.5 mL Plan of Care Reminders Provider Appointments None recorded. Lab None recorded. Referral None recorded. Procedures None recorded. Surgeries None recorded. Imaging None recorded. Vitals 04/22/2020 09:40AM MAT Height Weight BMI 67 in 117 lbs 8 oz 18.4 kg/m2 01/28/2020 Height Weight Blood Pressure 67 in 121 lbs 101/71 mm[Hg] 12/31/2019 Height Weight Blood Pressure 67 in 121 lbs 12.8 oz 116/77 mm[Hg] 04/30/2019 Height Weight Blood Pressure 67 in 125 lbs 9.6 oz 106/74 mm[Hg] 04/17/2019 Height Weight Blood Pressure 67 in 128 lbs 2.08 oz 99/69 mm[Hg] 03/26/2019 Height Weight Blood Pressure 67 in 136 lbs 105/73 mm[Hg] 03/02/2019 Height Weight Blood Pressure 67 in 136 lbs 8 oz 97/67 mm[Hg] 01/23/2019 Height Weight Blood Pressure 67 in 134 lbs 4 oz 129/85 mm[Hg] 01/12/2019 Height Weight Blood Pressure 67 in 135 lbs 8 oz 113/72 mm[Hg] 09/11/2018 Height Weight Blood Pressure 67 in 132 lbs 94/72 mm[Hg]"
--- OUTSIDE RECORDS SUMMARY | 2020-07-25 13:10 | CCD ---
Author Organization Unknown Address [address] [place] [address] Phone [phone] Care Team Providers Care Torch Straightener Name Role Phone Narendra Tom Unavailable Unavailable Allergies Code Code System Name Reaction Severity Status Onset 643895 RxNorm Cabbage Active 08/19/2015 Penicillin Active 08/19/2015 Notes: FISH - Reaction: throat swells | BEE STINGS - Reaction: throat swells Medications Name Status Start Date Stop Date acetaminophen 500 mg tablet Active Not available albuterol sulfate HFA 90 mcg/actuation a erosol inhaler INHALE 2 PUFFS BY MOUTH EVERY 4 HOURS NEEDED FOR FOR SHORTNESS OF BREATH Active Not available buprenorphine 12 mg-naloxone 3 mg sublin gual film PLACE ONE FILM UNDER THE TONGUE EVERY DAY MAXIMUM DAILY DOSE 1 Active Not available buprenorphine 8 mg-naloxone 2 mg sublingual film Active Not available buspirone 15 mg tablet TAKE ONE TABLET BY MOUTH THREE TIMES A DAY NEEDED Active Not available d3-1000 25 mcg (1000 ut) caps Active [...] Active Not available mirtazapine 30 mg tablet TAKE ONE TABLET BY MOUTH AT BEDTIME Active Not available mupirocin 2 % topical ointment Active N ot available naproxen 500 mg tablet Active Not avail able nicotine (polacrilex) 4 mg gum Active N ot available oxcarbazepine 150 mg tablet TAKE ONE TABLET BY MOUTH TWICE A DAY Active No t available venlafaxine ER 37.5 mg capsule,extended release 24 hr TAKE ONE CAPSULE BY MOUTH EVERY DAY IN THE MORNING Active Not available Vitamin D3 25 mcg (1,000 unit) tablet Active Not available Problems Name Status Onset Date Source Viral Hepatitis C Active 08/19/2015 History Opioid Dependence Active 08/19/2015 History Tobacco User Active 08/19/2015 History Asthma Active 08/19/2015 History Influenza Vaccine Needed Active 08/19/2015 History Memory Finding Active 08/19/2015 [...] Female Genitalia Finding Active 07/24/2019 History Procedures Date Name Performed by Tubal Ligation Information not avai lable Cholecystectomy Information not avai lable Gastric Bypass Information not avai lable Notes: Feeding tube Results Lab Results Date Name Specimen Result Interpretation Description Value Range Status Address 05/13/2020 COVID-19 RNA (SARS-CoV-2), QL, 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 05/20/2020 Opioid Dependence Narendra Tom MD: [address] [place] [address], Ph. 05/13/2020 Exposure to SARS-CoV-2 Narendra Tom MD: [address] [place] [address], Ph. 04/22/2020 Opioid Dependence; Low Back Pain Narendra Tom MD: [address] [place] [address], Ph. Social History Tobacco Smoking Status Heavy Tobacco Smoker (1 06/21 PPD) Vaccine List Vaccine Type influenza, seasonal, injectable 08/19/20150.5 mL Tdap 08/19/20150.5 mL Plan of Care Reminders Provider Appointments None recorded. Lab None recorded. Referral None recorded. Procedures None recorded. Surgeries None recorded. Imaging None recorded. Vitals 06/24/2020 10:20AM MAT Height Weight BMI Blood Pressure 67 in 117 lbs 2 oz 18.3 kg/m2 97/62 mm[Hg] 05/20/2020 10:20AM MAT Height 67 in 04/22/2020 09:40AM MAT Height Weight BMI 67 [...]
--- OUTSIDE RECORDS SUMMARY | 2020-07-25 13:10 | CCD ---
Author Organization Unknown Address [address] [place] [address] Phone [phone] Care Team Providers Care Glycerin Operator Name Role Phone Narendra Tom Unavailable Unavailable Allergies Code Code System Name Reaction Severity Status Onset 289577 RxNorm Cabbage Active 08/19/2015 Penicillin Active 08/19/2015 705238 RxNorm Bee Pollen Anaphylaxis Severe Active Notes: FISH - Reaction: throat swells | BEE STINGS - Reaction: throat swells Medications Name Status Start Date Stop Date acetaminophen 500 mg tablet Completed 06/2020 albuterol sulfate HFA 90 mcg/actuation a erosol inhaler INHALE 2 PUFFS BY MOUTH EVERY 4 HOURS NEEDED FOR FOR SHORTNESS OF BREATH Active Not available buprenorphine 12 mg-naloxone 3 mg sublin gual film PLACE ONE FILM UNDER THE TONGUE EVERY DAY MAXIMUM DAILY DOSE 1 FILM Active Not available buprenorphine 8 mg-naloxone 2 mg sublingual film Completed 07/21/2020 buspirone 15 mg tablet Active Not avail [...] Active Not available meloxicam 7.5 mg tablet Completed 07/21/19 21 methylprednisolone 4 mg tablets in a dose pack Completed 07/21/2020 mirtazapine 30 mg tablet Active Not sonya ilable mupirocin 2 % topical ointment Completed 0 07/21/2020 naproxen 500 mg tablet Active Not avail [...] Status Address 05/13/2020 COVID-19 RNA (SARS-CoV-2), QL, 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 06/24/2020 Opioid Dependence; Tobacco User; Screening for Malignant Neoplasm of Cervix Narendra Tom MD: [address] [place] [address], Ph. 05/20/2020 Opioid Dependence Narendra Tom MD: [address] [place] [address], Ph. 05/13/2020 Exposure to SARS-CoV-2 Narendra Tom MD: [address] [place] [address], Ph. 04/22/2020 Opioid Dependence; Low Back Pain Narendra Tom MD: [address] [place] [phone], Ph. Social History Tobacco Smoking Status Heavy Tobacco Smoker (1 06/21 PPD) Vaccine List Vaccine Type influenza, seasonal, injectable 08/19/20150.5 mL Tdap 08/19/20150.5 mL Notes: Pt declined flu shot Plan of Care Reminders Provider Appointments None recorded. Lab None recorded. Referral None recorded. Procedures None recorded. Surgeries None recorded. Imaging None recorded. Vitals 07/21/2020 09:20AM MAT Height Weight BMI Blood Pressure 67 in 122 lbs 16 oz 19.3 kg/m2 120/69 mm[Hg] 06/24/2020 10:20AM MAT Height Weight BMI Blood [...]
--- OUTSIDE RECORDS SUMMARY | 2020-07-25 13:10 | CCD ---
Author Organization Unknown Address [address] [place] [address] Phone [phone] Care Team Providers Care Supply Controller Name Role Phone Narendra Tom Unavailable Unavailable Allergies Code Code System Name Reaction Severity Status Onset 436155 RxNorm Cabbage Active 08/19/2015 Penicillin Active 08/19/2015 [...] ing tube, Tubal ligation Results Lab Results Date Name Specimen Result Interpretation Description Value Range Status Address 05/13/2020 COVID-19 RNA (SARS-CoV-2), QL, custodial officer-PCR, Respiratory Specimen Nasopharyngeal Normal Sars Cov 2 RNA not detected not detected Fi nal Associated Clinical Labs ([employer] [facility]): [address] Past Encounters 05/20/2020 Opioid Dependence Narendra Tom MD: [address] [place] [address], Ph. 05/13/2020 Exposure to SARS-CoV-2 Narendra Tom MD: [address] [place] [address], Ph. 04/22/2020 Opioid Dependence; Low Back Pain Narendra Tom MD: [address] [place] [address], Ph. Social History Tobacco Smoking Status Heavy Tobacco Smoker (1 1/2 PPD) Vaccine List Vaccine Type influenza, seasonal, injectable 08/19/20150.5 mL Tdap 08/19/20150.5 mL Plan of Care Reminders Provider Appointments None recorded. Lab None recorded. Referral None recorded. Procedures None recorded. Surgeries None recorded. Imaging None recorded. Vitals 05/20/2020 10:20AM MAT Height 67 in 04/22/2020 [...]
--- OUTSIDE RECORDS SUMMARY | 2020-07-25 13:10 | CCD ---
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 05/13/2020 Exposure to SARS-CoV-2 Narendra Tom MD: [address] [place] [address], Ph. 04/22/2020 Opioid Dependence; Low Back Pain Naerndra Tom MD: [address] [place] [address], Ph. Social History Tobacco Smoking Status Heavy [...]
--- OUTSIDE RECORDS SUMMARY | 2020-07-25 13:10 | CCD ---
Author Organization Unknown Address [address] [place] [address] Phone [phone] Care Team Providers Care Director Of Student Aid Name Role Phone Narendra Tom Unavailable Unavailable Allergies Code Code System Name Reaction Severity Status Onset 622934 RxNorm Cabbage Active 08/19/2015 Penicillin Active 08/19/2015 [...] Status Address 05/13/2020 COVID-19 RNA (SARS-CoV-2), QL, garbage collector-PCR, Respiratory Specimen Nasopharyngeal Normal Sars Cov 2 RNA not detected not detected Fi nal Associated Clinical Labs ([employer] [facility]): [address] Past Encounters 06/24/2020 Opioid Dependence; Tobacco User; Screening for Malignant Neoplasm of Cervix Narendra Tom MD: [address] [place] [phone], Ph. 05/20/2020 Opioid Dependence Narendra Tom MD: [address] [place] [address], Ph. 05/13/2020 Exposure to SARS-CoV-2 Narendra Tom MD: [address] [place] [address], Ph. 04/22/2020 Opioid Dependence; Low Back Pain Narendra Tom MD: [address] [place] [address], Ph. Social History Tobacco Smoking Status Heavy [...]
[2020-07-25] MEDS ORDERED: IBUP-1114 PO (13:11)
--- OUTSIDE RECORDS SUMMARY | 2020-07-25 13:11 | CCD ---
Author Author [facility] Organization [facility] Address Unknown Phone Unavailable Support Name Relationship Address Phone HANNA MARRICIA Next Of Kin UNKNOWN [place], [place] [id number] Negro ALTMAN, Narendra Next Of Kin [address] [place] [phone] Abdulaziz ALTMAN, Clifton Next Of Kin [address] [place] [address] JACI BONNER Next Of Kin [address] [place] [address] Jada Castillo Next Of Kin [address] [place], [place] [phone] Andrew LOCKEP, Mira Next Of Kin [address] [place] [address] 315 Tawanna ECHEVERRIA, Natasha Next Of Kin [address] [place] [address] Candido Moore Next Of Kin [address] [place] [address] Aishwarya ECHEVERRIA, Iris Next Of Kin [address] [place] [address] ENRRIQUE MAR Next Of Kin [address] [address] KEATON LOCKWOOD Next Of Kin [address] [place] [address] COMFORT INN SUITES Next Of Kin [address] [place] [address] KAILEY URIARTE Next Of Kin [address] [facility] [address] [place], [place] [phone] Yasmin ROBB Next Of Kin [address] [place] [id number] JINA [place] Next Of Kin [address] [place] [address] [phone] ST Next Of Kin Unknown Unavailable [place] [address] Yasmin BONNER Next Of Kin [address] [address] [place] [address] TILA CHAPITO Next Of Kin [address] [place] [address] UE Next Of Kin Unknown Unavailable RITIKA LOUIS Next [place] [address] TILA KASH Next Of Kin [address] [place] [place] [address] UNEMPLOYED Next Of Kin Unknown Yasmin BRAUN Next Of Kin [address] [facility] [place] [address] [place] [address] Enrrique Mar [address] [address] [phone] Care Team Providers 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 Name Role Phone Kaitlynn Cisneros MD Unavailable Unavailable Kaitlynn Cisneros MD Unavailable Unavailable Kaitlynn Cisneros MD Unavailable Unavailable Kaitlynn Cisneros MD Unavailable Unavailable Kaitlynn Cisneros MD Unavailable Unavailable Kaitlynn Cisneros MD Unavailable Unavailable Kaitlynn Cisneros MD Unavailable Unavailable Kaitlynn Cisneros MD Unavailable Unavailable Kaitlynn Cisneros MD Unavailable Unavailable Kaitlynn Cisneros MD Unavailable Unavailable Kaitlynn Cisneros MD Unavailable Unavailable Kaitlynn Cisneros MD Unavailable Unavailable Kaitlynn Cisneros MD Unavailable Unavailable Kaitlynn Cisneros MD Unavailable Unavailable Kaitlynn Cisneros MD Unavailable Unavailable Kaitlynn Cisneros MD Unavailable Unavailable Kaitlynn Cisneros MD Unavailable Unavailable Kaitlynn Cisneros MD Unavailable Unavailable Kaitlynn Cisneros MD Unavailable Unavailable Kaitlynn Cisneros MD Unavailable Unavailable Kaitlynn Cisneros MD Unavailable Unavailable Kaitlynn Cisneros MD Unavailable Unavailable Kaitlynn Cisneros MD Unavailable Unavailable Kaitlynn Cisneros MD Unavailable Unavailable Kaitlynn Cisneros MD Unavailable Unavailable Kaitlynn Cisneros MD Unavailable Unavailable Kaitlynn Cisneros MD Unavailable Unavailable Kaitlynn Cisneros MD Unavailable Unavailable Kaitlynn Cisneros MD Unavailable Unavailable Kaitlynn Cisneros MD Unavailable Unavailable Kaitlynn Cisneros MD Unavailable Unavailable Kaitlynn Cisneros MD Unavailable Unavailable Kaitlynn Cisneros MD Unavailable Unavailable Kaitlynn Cisneros MD Unavailable Unavailable Kaitlynn Cisneros MD Unavailable Unavailable Kaitlynn Cisneros MD Unavailable Unavailable Kaitlynn Cisneros MD Unavailable Unavailable Kaitlynn Cisneros MD Unavailable Unavailable Kaitlynn Cisneros MD Unavailable Unavailable Kaitlynn Cisneros MD Unavailable Unavailable Kaitlynn Cisneros MD Unavailable Unavailable Kaitlynn Cisneros MD Unavailable Unavailable Kaitlynn Cisneros MD Unavailable Unavailable Kaitlynn Cisneros MD Unavailable Unavailable Kaitlynn Cisneros MD Unavailable Unavailable Kaitlynn Cisneros MD Unavailable Unavailable Kaitlynn Cisneros MD Unavailable Unavailable Kaitlynn Cisneros MD Unavailable Unavailable Kaitlynn Cisneros MD Unavailable Unavailable Kaitlynn Cisneros MD Unavailable Unavailable Kaitlynn Cisneros MD Unavailable Unavailable Kaitlynn Cisneros MD Unavailable Unavailable Kaitlynn Cisneros MD Unavailable Unavailable Kaitlynn Cisneros MD Unavailable Unavailable Kaitlynn Cisneros MD Unavailable Unavailable Kaitlynn Cisneros MD Unavailable Unavailable Kaitlynn Cisneros MD Unavailable Unavailable Kaitlynn Cisneros MD Unavailable Unavailable Kaitlynn Cisneros MD Unavailable Unavailable Kaitlynn Cisneros MD Unavailable Unavailable Kaitlynn Cisneros MD Unavailable Unavailable Kaitlynn Cisneros MD Unavailable Unavailable Kaitlynn Cisneros MD Unavailable Unavailable Kaitlynn Cisneros MD Unavailable Unavailable Kaitlynn Cisneros MD Unavailable Unavailable Kaitlynn Cisneros MD Unavailable Unavailable Kaitlynn Cisneros MD Unavailable Unavailable Kaitlynn Cisneros MD Unavailable Unavailable Kaitlynn Cisneros MD Unavailable Unavailable Kaitlynn Cisneros MD Unavailable Unavailable Kaitlynn Cisneros MD Unavailable Unavailable Kaitlynn Cisneros MD Unavailable Unavailable Kaitlynn Cisneros MD Unavailable Unavailable Kaitlynn Cisneros MD Unavailable Unavailable Kaitlynn Cisneros MD Unavailable Unavailable Kaitlynn Cisneros MD Unavailable Unavailable Kaitlynn Cisneros MD Unavailable Unavailable Kaitlynn Cisneros MD Unavailable Unavailable Kaitlynn Cisneros MD Unavailable Unavailable Kailtynn Cisneros MD Unavailable Unavailable Kaitlynn Cisneros MD Unavailable Unavailable Kaitlynn Cisneros MD Unavailable Unavailable Kaitlynn Cisneros MD Unavailable Unavailable Kaitlynn Cisneros MD Unavailable Unavailable Kaitlynn Cisneros MD Unavailable Unavailable Kaitlynn Cisneros MD Unavailable Unavailable Kaitlynn Cisneros MD Unavailable Unavailable Kaitlynn Cisneros MD Unavailable Unavailable Kaitlynn Cisneros MD Unavailable Unavailable Kaitlynn Cisneros MD Unavailable Unavailable Kaitlynn Cisneros MD Unavailable Unavailable Kaitlynn Cisneros MD Unavailable Unavailable Kaitlynn Cisneros MD Unavailable Unavailable Kaitlynn Cisneros MD Unavailable Unavailable Kaitlynn Cisneros MD Unavailable Unavailable Kaitlynn Cisneros MD Unavailable Unavailable Kaitlynn Cisneros MD Unavailable Unavailable Kaitlynn Cisneros MD Unavailable Unavailable Kaitlynn Cisneros MD Unavailable Unavailable Kaitlynn Cisneros MD Unavailable Unavailable Kaitlynn Cisneros MD Unavailable Unavailable Kaitlynn Cisneros MD Unavailable Unavailable Kaitlynn Cisneros MD Unavailable Unavailable Kaitlynn Cisneros MD Unavailable Unavailable Kaitlynn Cisneros MD Unavailable Unavailable Kaitlynn Cisneros MD Unavailable Unavailable Kaitlynn Cisneros MD Unavailable Unavailable Kaitlynn Cisneros MD Unavailable Unavailable Kaitlynn Cisneros MD Unavailable Unavailable Kaitlynn Cisneros MD Unavailable Unavailable Kaitlynn Cisneros MD Unavailable Unavailable Kaitlynn Cisneros MD Unavailable Unavailable Kaitlynn Cisneros MD Unavailable Unavailable Kaitlynn Cisneros MD Unavailable Unavailable Kaitlynn Cisneros MD Unavailable Unavailable Kaitlynn Cisneros MD Unavailable Unavailable Kaitlynn Cisneros MD Unavailable Unavailable Kaitlynn Cisneros MD Unavailable Unavailable Kaitlynn Cisneros MD Unavailable Unavailable Kaitlynn Cisneros MD Unavailable Unavailable Kaitlynn Cisneros MD Unavailable Unavailable Kaitlynn Cisneros MD Unavailable Unavailable Kaitlynn Cisneros MD Unavailable Unavailable Kaitlynn Cisneros MD Unavailable Unavailable Kaitlynn Cisneros MD Unavailable Unavailable Kaitlynn Cisneros MD Unavailable Unavailable Kaitlynn Cisneros MD Unavailable Unavailable Kaitlynn Cisneros MD Unavailable Unavailable Kaitlynn Cisneros MD Unavailable Unavailable Kaitlynn Cisneros MD Unavailable Unavailable Kaitlynn Cisneros MD Unavailable Unavailable Kaitlynn Cisneros MD Unavailable Unavailable Kaitlynn Cisneros MD Unavailable Unavailable Kaitlynn Cisneros MD Unavailable Unavailable Kaitlynn Cisneros MD Unavailable Unavailable Kaitlynn Cisneros MD Unavailable Unavailable Kaitlynn Cisneros MD Unavailable Unavailable Kaitlynn Cisneros MD Unavailable Unavailable Kaitlynn Cisneros MD Unavailable Unavailable Kaitlynn Cisneros MD Unavailable Unavailable Katilynn Cisneros MD Unavailable Unavailable Kaitlynn Cisneros MD Unavailable Unavailable Kaitlynn Cisneros MD Unavailable Unavailable Kaitlynn Cisneros MD Unavailable Unavailable Kaitlynn Cisneros MD Unavailable Unavailable Kaitlynn Cisneros MD Unavailable Unavailable Kaitlynn Cisneros MD Unavailable Unavailable Kaitlynn Cisneros MD Unavailable Unavailable Kaitlynn Cisneros MD Unavailable Unavailable Kaitlynn Cisneros MD Unavailable Unavailable Kaitlynn Cisneros MD Unavailable Unavailable Kaitlynn Cisneros MD Unavailable Unavailable Kaitlynn Cisneros MD Unavailable Unavailable Kaitlynn Cisneros MD Unavailable Unavailable Kaitlynn Cisneros MD Unavailable Unavailable Kaitlynn Cisneros MD Unavailable Unavailable Kaitlynn Cisneros MD Unavailable Unavailable Kaitlynn Cisneros MD Unavailable Unavailable Kaitlynn Cisneros MD Unavailable Unavailable Kaitlynn Cisneros MD Unavailable Unavailable Kaitlynn Cisneros MD Unavailable Unavailable Kaitlynn Cisneros MD Unavailable Unavailable Kaitlynn Cisneros MD Unavailable Unavailable Kaitlynn Cisneros MD Unavailable Unavailable Kaitlynn Cisneros MD Unavailable Unavailable Kaitlynn Cisneros MD Unavailable Unavailable Kaitlynn Cisneros MD Unavailable Unavailable Kaitlynn Cisneros MD Unavailable Unavailable Kaitlynn Cisneros MD Unavailable Unavailable Kaitlynn Cisneros MD Unavailable Unavailable Kaitlynn Cisneros MD Unavailable Unavailable Kaitlynn Cisneros MD Unavailable Unavailable Kaitlynn Cisneros MD Unavailable Unavailable Kaitlynn Cisneros MD Unavailable Unavailable Kaitlynn Cisneros MD Unavailable Unavailable Kaitlynn Cisneros MD Unavailable Unavailable Kaitlynn Cisneros MD Unavailable Unavailable Kaitlynn Cisneros MD Unavailable Unavailable Wendi NERI MD Unavailable Unavailable Wendi NERI MD Unavailable Unavailable Wendi NERI MD Unavailable Unavailable Wendi NERI MD Unavailable Unavailable Wendi NERI MD Unavailable Unavailable Wendi NERI MD Unavailable Unavailable Wendi NERI MD Unavailable Unavailable Wendi NERI MD Unavailable Unavailable Wendi NERI MD Unavailable Unavailable Wendi NERI MD Unavailable Unavailable Wendi NERI MD Unavailable Unavailable Wendi NERI MD Unavailable Unavailable Wendi NERI MD Unavailable Unavailable Wendi NERI MD Unavailable Unavailable Wedni NERI MD Unavailable Unavailable Wendi NERI MD Unavailable Unavailable Wendi NERI MD Unavailable Unavailable Wendi NERI MD Unavailable Unavailable Wendi NERI MD Unavailable Unavailable Wendi NERI MD Unavailable Unavailable Wendi NERI MD Unavailable Unavailable Wendi NERI MD Unavailable Unavailable Wendi NERI MD Unavailable Unavailable Wendi NERI MD Unavailable Unavailable Wendi NERI MD Unavailable Unavailable Wendi NERI MD Unavailable Unavailable Wendi NERI MD Unavailable Unavailable Wendi NERI MD Unavailable Unavailable Wendi NERI MD Unavailable Unavailable Wendi NERI MD Unavailable Unavailable Wendi NERI MD Unavailable Unavailable Wendi NERI MD Unavailable Unavailable Wendi NERI MD Unavailable Unavailable Wendi NERI MD Unavailable Unavailable Wendi NERI MD Unavailable Unavailable Wendi NERI MD Unavailable Unavailable Wendi NERI MD Unavailable Unavailable Wendi NERI MD Unavailable Unavailable Wendi NERI MD Unavailable Unavailable Wendi NERI MD Unavailable Unavailable Wendi NERI MD Unavailable Unavailable Wendi NERI MD Unavailable Unavailable Wendi NERI MD Unavailable Unavailable Wendi NERI MD Unavailable Unavailable Wendi NERI MD Unavailable Unavailable Wendi NERI MD Unavailable Unavailable Wenid NERI MD Unavailable Unavailable Wendi NERI MD Unavailable Unavailable Wendi NERI MD Unavailable Unavailable Wendi NERI MD Unavailable Unavailable Wendi NERI MD Unavailable Unavailable Wendi NERI MD Unavailable Unavailable Wenid NERI MD Unavailable Unavailable Wendi NERI MD Unavailable Unavailable Wendi NERI MD Unavailable Unavailable Wendi NERI MD Unavailable Unavailable Wendi NERI MD Unavailable Unavailable Wendi NERI MD Unavailable Unavailable Wendi NERI MD Unavailable Unavailable Wendi NERI MD Unavailable Unavailable Wendi NERI MD Unavailable Unavailable Wendi NERI MD Unavailable Unavailable Wendi NERI MD Unavailable Unavailable Wendi NERI MD Unavailable Unavailable Wendi NERI MD Unavailable Unavailable Wendi NERI MD Unavailable Unavailable Wendi NERI MD Unavailable Unavailable Wendi NERI MD Unavailable Unavailable Wendi NERI MD Unavailable Unavailable Wendi NERI MD Unavailable Unavailable Wendi NERI MD Unavailable Unavailable Wendi NERI MD Unavailable Unavailable Wendi NERI MD Unavailable Unavailable Wendi NERI MD Unavailable Unavailable Wenid NERI MD Unavailable Unavailable Wendi NERI MD Unavailable Unavailable Wendi NERI MD Unavailable Unavailable Wendi NERI MD Unavailable Unavailable Wendi NERI MD Unavailable Unavailable Wendi NERI MD Unavailable Unavailable Wendi NERI MD Unavailable Unavailable Wendi NERI MD Unavailable Unavailable Wendi NERI MD Unavailable Unavailable Silva, M Barratt PA Unavailable Unavailable Silva, M Barratt PA Unavailable Unavailable Silva, M Barratt PA Unavailable Unavailable Silva, M Barratt PA Unavailable Unavailable Silva, M Barratt PA Unavailable Unavailable Silva, M Barratt PA Unavailable Unavailable Silva, M Barratt PA Unavailable Unavailable Silva, M Barratt PA Unavailable Unavailable Silva, M Barratt PA Unavailable Unavailable Silva, M Barratt PA Unavailable Unavailable Silva, M Barratt PA Unavailable Unavailable Silva, M Barratt PA Unavailable Unavailable Silva, M Barratt PA Unavailable Unavailable Silva, M Barratt PA Unavailable Unavailable Silva, M Barratt PA Unavailable Unavailable Silva, M Barratt PA Unavailable Unavailable Silva, M Barratt PA Unavailable Unavailable Silva, M Barratt PA Unavailable Unavailable Silva, M Barratt PA Unavailable Unavailable Silva, M Barratt PA Unavailable Unavailable Silva, M Barratt PA Unavailable Unavailable Silva, M Barratt PA Unavailable Unavailable Silva, M Barratt PA Unavailable Unavailable Silva, M Barratt PA Unavailable Unavailable Silva, M Barratt PA Unavailable Unavailable Silva, M Barratt PA Unavailable Unavailable Silva, M Barratt PA Unavailable Unavailable Doremus, E Allie PA Unavailable Unavailable Doremus, E Allie PA Unavailable Unavailable Doremus, E Allie PA Unavailable Unavailable Doremus, E Allie PA Unavailable Unavailable Doremus, E Allie PA Unavailable Unavailable Doremus, E Allie PA Unavailable Unavailable Doremus, E Allie PA Unavailable Unavailable Doremus, E Allie PA Unavailable Unavailable Doremus, E Allie PA Unavailable Unavailable Doremus, E Allie PA Unavailable Unavailable Doremus, E Allie PA Unavailable Unavailable Doremus, E Allie PA Unavailable Unavailable Doremus, E Allie PA Unavailable Unavailable Doremus, E Allie PA Unavailable Unavailable Doremus, E Allie PA Unavailable Unavailable Doremus, E Allie PA Unavailable Unavailable Doremus, E Allie PA Unavailable Unavailable Doremus, E Allie PA Unavailable Unavailable Doremus, E Allie PA Unavailable Unavailable Benito, Wilfrid Unavailable Unavailable Benito, Wilfrid Unavailable Unavailable Benito, Wilfrid Unavailable Unavailable Benito, Wilfrid Unavailable Unavailable Benito, Wilfrid Unavailable Unavailable Benito, Wilfrid Unavailable Unavailable Benito, Wilfrid Unavailable Unavailable Benito, Wilfrid Unavailable Unavailable Benito, Wilfrid Unavailable Unavailable Benito, Wilfrid Unavailable Unavailable Benito, Wilfrid Unavailable Unavailable Benito, Wilfrid Unavailable Unavailable Benito, Wilfrid Unavailable Unavailable Benito, Wilfrid Unavailable Unavailable Benito, Wilfrid Unavailable Unavailable Benito, Wilfrid Unavailable Unavailable Benito, Wilfrid Unavailable Unavailable Benito, Wilfrid Unavailable Unavailable Benito, Wilfrid Unavailable Unavailable Benito, Wilfrid Unavailable Unavailable Benito, Wilfrid Unavailable Unavailable Benito, Wilfrid Unavailable Unavailable Benito, Wilfrid Unavailable Unavailable Benito, Wilfrid Unavailable Unavailable Benito, Wilfrid Unavailable Unavailable Benito, Wilfrid Unavailable Unavailable Benito, Wilfrid Unavailable Unavailable Benito, Wilfrid Unavailable Unavailable Benito, Wilfrid Unavailable Unavailable Benito, Wilfrid Unavailable Unavailable Benito, Wilfrid Unavailable Unavailable Benito, Wilfrid Unavailable Unavailable Benito, Wilfrid Unavailable Unavailable Benito, Wilfrid Unavailable Unavailable Benito, Wilfrid Unavailable Unavailable Benito, Wilfrid Unavailable Unavailable Benito, Wilfrid Unavailable Unavailable Benito, Wilfrid Unavailable Unavailable Benito, Wilfrid Unavailable Unavailable Benito, Wilfrid Unavailable Unavailable Benito, Wilfrid Unavailable Unavailable Benito, Wilfrid Unavailable Unavailable Benito, Wilfrid Unavailable Unavailable Benito, Wilfrid Unavailable Unavailable Re-disclosure Warning The records that you are about to access may contain information from federally-assisted alcohol or drug abuse programs. If such information is present, then the following federally mandated warning applies: This information has been disclosed to you from records protected by federal confidentiality rules (42 CFR part 2). The federal rules prohibit you from making any further disclosure of this information unless further disclosure is expressly permitted by the written consent of the person to whom it pertains or as otherwise permitted by 42 CFR part 2. A general authorization for the release of medical or other information is NOT sufficient for this purpose. The Federal rules restrict any use of the information to criminally investigate or prosecute any alcohol or drug abuse patient.The records that you are about to access may contain highly sensitive health information, the redisclosure of which is protected by Article 27-F of the [facility] Public Health law. If you continue you may have access to information: Regarding HIV / AIDS; Provided by facilities licensed or operated by the [facility] Office of Mental Health; or Provided by the [facility] Office for People With Developmental Disabilities. If such information is present, then the following [facility] mandated warning applies: This information has been disclosed to you from confidential records which are protected by state law. State law prohibits you from making any further disclosure of this information without the specific written consent of the person to whom it pertains, or as otherwise permitted by law. Any unauthorized further disclosure in violation of state law may result in a fine or shelter sentence or both. A general authorization for the release of medical or other information is NOT sufficient authorization for further disc losure. Allergies and Adverse Reactions Type Description Substance Reaction Status Data Source(s ) Miscellaneous allergy LATEX LATEX [facility] Drug allergy Dura-Cuf Dura-Cuf Hives Active eCW1 ([facility]) fish fish fish Hives Active eCW1 ([facility]) Cephalexin Cephalexin Cephalexin 750 MG Oral Capsule hives Activ e eCW1 ([facility]) Lyrica Lyrica pregabalin 20 MG/ML Oral Solution [Lyrica] Hive s Active eCW1 ([facility]) Family History Family Member Name Family Member Gender Family Member Status Date o f Status Description Data Source(s) Unknown Unknown Problem MEDENT ([facility], ) Encounters Encounter Providers Location Date Indications Data Source(s ) Narendra Cisneros MD: [address] [place] [phone], Ph. Attender: Narendra Cisneros MD [facility] 07/21/2020 12:00:00 AM EST RAFAEL ([facility]) Narendra Cisneros MD: [address] [place] [address], Ph. Attender: Narendra Cisneros MD [facility] Medical 06/24/2020 12:00:00 AM EST RAFAEL ([facility]) Narendra Cisneros MD: [address] [place] [address], Ph. Attender: Narendra Cisneros MD [facility] Medical 06/24/2020 12:00:00 AM EST RAFAEL ([facility]) Narendra Cisneros MD: [address] [place] [address], Ph. Attender: Narendra Cisneros MD [facility] Medical 06/24/2020 12:00:00 AM EST RAFAEL ([facility]) Outpatient Attender: Narendra Cisneros MD 05/20/2020 10:23:00 AM EST [facility] Narendra Cisneros MD: [address] [place] [address], Ph. Attender: Narednra Cisneros MD [facility] Medical 05/20/2020 12:00:00 AM EST RAFAEL ([facility]) Narendra Cisneros MD: [address] [place] [address], Ph. Attender: Narendra Cisneros MD [facility] Medical 05/20/2020 12:00:00 AM EST RAAFEL ([facility]) Narendra Cisneros MD: [address] [place] [address], Ph. Attender: Narendra Cisneros MD [facility] Medical 05/20/2020 12:00:00 AM EST RAFAEL ([facility]) Narendra Cisneros MD: [address] [place] [address], Ph. Attender: Narendra Cisneros MD [facility] Medical 05/20/2020 12:00:00 AM EST RAFAEL ([facility]) Narendra Cisneros MD: [address] [place] [address], Ph. Attender: Narendra Cisneros MD [facility] Medical 05/20/2020 12:00:00 AM EST RAFAEL ([facility]) Narendra Cisneros MD: [address] [place] [address], Ph. Attender: Narendra Cisneros MD [facility] Medical 05/13/2020 12:00:00 AM EST RAFAEL ([facility]) Narendra Cisneros MD: [address] [place] [address], Ph. Attender: Narendra Cisneros MD [facility] Medical 05/13/2020 12:00:00 AM EST [facility]FAEL ([facility]) Narendra Cisneros MD: [address] [place] [address], Ph. Attender: Narendra Cisneros MD [facility] Medical 05/13/2020 12:00:00 AM EST RAFAEL ([facility]) Narendra Cisneros MD: [address] [place] [address], Ph. Attender: Narendra Cisneros MD [facility] Medical 05/13/2020 12:00:00 AM EST RAFAEL ([facility]) Narendra Cisneros MD: [address] [place] [address], Ph. Attender: Narendra Cisneros MD [facility] Medical 05/13/2020 12:00:00 AM EST RAFAEL ([facility]) Narendra Cisneros MD: [address] [place] [address], Ph. Attender: Narendra Cisneros MD [facility] Medical 05/13/2020 12:00:00 AM EST RAFAEL ([facility]) Narendra Cisneros MD: [address] [place] [address], Ph. Attender: Narendra Cisneros MD [facility] Medical 04/22/2020 12:00:00 AM EST RAFAEL ([facility]) Narendra Cisneros MD: [address] [place] [address], Ph. Attender: Narendra Cisneros MD [facility] Medical 04/22/2020 12:00:00 AM EST RAFAEL ([facility]) Narendra Cisneros MD: [address] [place] [address], Ph. Attender: Narendra Cisneros MD [facility] Medical 04/22/2020 12:00:00 AM EST RAFAEL ([facility]) Narendra Cisneros MD: [address] [place] [address], Ph. Attender: Narendra Cisneros MD [facility] Medical 04/22/2020 12:00:00 AM EST RAFAEL ([facility]) Narendra Cisneros MD: [address] [place] [address], Ph. Attender: Narendra Cisneros MD [facility] Medical 04/22/2020 12:00:00 AM EST RAFAEL ([facility]) Narendra Cisneros MD: [address] [place] [address], Ph. Attender: Narendra Cisneros MD [facility] Medical 04/22/2020 12:00:00 AM EST RAFAEL ([facility]) Narendra Cisneros MD: [address] [place] [address], Ph. Attender: Narendra Cisneros MD [facility] 04/22/2020 12:00:00 AM EST RAFAEL ([facility]) OFFICE OUTPATIENT NEW 30 MINUTES Attender: [facility] 04/08/2020 10:40:00 AM EDT MEDENT ([facility]) Outpatient Attender: Bernarda MACHUCA [facility] 01:15:00 PM EDT [facility] ([facility]) Outpatient Attender: Narendra Cisneros MD 03/25/2020 08:51:01 AM EDT [facility] Outpatient Attender: Narendra Cisneros MD 03/14/2020 04:40:02 PM EDT [facility] Outpatient Attender: Narendra Cisneros MD 03/14/2020 04:40:01 PM EDT [facility] Outpatient Attender: Narendra Cisneros MD 03/14/2020 04:29:00 PM EDT [facility] Outpatient Attender: Narendra Cisneros MD 03/14/2020 04:29:00 PM EDT [facility] Outpatient Attender: Narendra Cisneros MD 03/11/2020 08:45:01 AM EDT [facility] Outpatient Attender: Narendra Cisneros MD 03/11/2020 12:00:32 AM EDT [facility] Outpatient Attender: Narendra Cisneros MD 03/10/2020 02:30:15 PM EDT [facility] Outpatient Attender: Narendra Cisneros MD 03/10/2020 02:29:00 PM EDT [facility] Outpatient Attender: Narendra Cisneros MD 03/10/2020 01:15:08 PM EDT [facility] Outpatient Attender: Narendra Cisneros MD 03/05/2020 08:51:00 AM EDT [facility] Outpatient Attender: Allie MACHUCA Physical Therapy 09:15:00 AM EDT MEDENT ([facility]) Outpatient Attender: Narendra Cisneros MD 02/18/2020 11:26:03 AM EDT [facility] Outpatient Attender: Narendra Cisneros MD 02/18/2020 10:11:01 AM EDT [facility] OFFICE OUTPATIENT NEW 30 MINUTES Attender: Allie MACHUCA ysical Therapy 02/13/2020 09:00:00 AM EDT MEDENT ([facility]) Outpatient Attender: Narendra Cisneros MD FP 01/29/2020 10:22:00 AM EDT [facility] Outpatient Attender: Narendra Cisneros MD FP 01/29/2020 10:21:01 AM EDT [facility] Outpatient Attender: Narendra Cisneros MD FP 01/29/2020 08:54:00 AM EDT [facility] [address] [place] [address] 01/24/2020 12:00:00 AM EDT eCW1 ([facility]) Outpatient Attender: Narendra Cisneros MD FP 01/18/2020 11:14:01 AM EDT [facility] Outpatient Attender: Narendra Cisneros MD FP 01/17/2020 04:35:01 PM EDT [facility] Outpatient Attender: Narendra Cisneros MD FP 01/17/2020 04:34:01 PM EDT [facility] Outpatient Attender: Narendra Cisneros MD FP 01/11/2020 10:24:00 AM EDT [facility] Outpatient Attender: Narendra Cisneros MD FP 12/31/2019 08:45:00 AM EDT [facility] Outpatient Attender: Narendra Cisneros MD FP 12/27/2019 08:08:01 AM EDT [facility] Outpatient Attender: Narendra Cisneros MD FP 12/19/2019 11:09:01 AM EDT [facility] Outpatient Attender: Narendra Cisneros MD FP 12/18/2019 11:10:02 AM EDT [facility] Outpatient Attender: Narendra Cisneros MD FP 12/17/2019 01:13:03 PM EDT [facility] Outpatient Attender: Narendra Cisneros MD FP 12/04/2019 12:55:01 PM EDT [facility] Outpatient Attender: CLIFTON NERI MD FP 12/04/2019 12:53:01 P M EDT [facility] Outpatient Attender: CLIFTON NERI MD FP 12/04/2019 12:52:01 P M EDT [facility] Outpatient Attender: CLIFTON NERI MD FP 12/04/2019 12:51:00 P M EDT [facility] Outpatient Attender: CLIFTON NERI MD FP 12/04/2019 12:02:15 A M EDT [facility] Outpatient Attender: CLIFTON NERI MD FP 12/03[facility]2019 [facility] FP 12/03/2019 [facility] CL[facility]ON NERI MD FP 11/29/2019 11:05:01 A M [facility] Outpatient Attender: CLIFTON NERI MD FP 11/27/2019 07:43:27 P [facility] [address] [place] [address] 11/15/2019 12:00:00 AM EDT eCW1 ([facility]) [facility] [address] [place] [address] 11/13/2019 12:00:00 AM EDT [facility]CW1 [facility] Outpatient Attender: CLIFTON NERI MD FP 10/15/2019 10:06:00 A M [facility] Outpatient Attender: CLIFTON NERI MD FP 08/19/2019 04:53:01 P [facility] Outpatient Attender: CLIFTON NERI MD FP 08/13/2019 09:01:07 P [facility] [address] [place] [address] 08/13/2019 12:00:00 AM EST eCW1 ([facility]) Outpatient Attender: CLIFTON NERI MD FP 08/12/2019 08:35:59 P [facility] [address] [place] [address] 08/10/2019 12:00:00 AM EST eCW1 ([facility]) Outpatient Attender: CLIFTON NERI MD FP 08/03/2019 12:40:01 P [facility] Outpatient Attender: CLIFTON NERI MD FP 07/25/2019 03:10:00 P [facility] Outpatient Attender: CLIFTON NERI MD FP 07/25/2019 10:26:04 A [facility] Outpatient Attender: CLIFTON NERI MD FP 07/25/2019 10:25:01 A [facility] Outpatient Attender: CLIFTON NERI MD FP 06/21/2019 02:56:02 P M [facility] Outpatient Attender: CLIFTON NERI MD 06/21/2019 11:39:00 A M [facility] Outpatient Attender: CLIFTON NERI MD 05/30/2019 03:50:01 P M [facility] Medications Medication Brand Name Start Date Product Form Dose Route Admi nistrative Instructions Pharmacy Instructions Status Indications Reaction Description Data Source(s) meloxicam 7.5 MG Oral Tablet Meloxicam 02/20/2020 12:00:00 AM EDT ORAL active MED[facility] ([facility]) Ibuprofen 800 MG Oral Tablet Ibuprofen 02/13/2020 12:00:00 AM EDT ORAL active [facility] ([facility]) Methylprednisolone 4 MG Oral Tablet [Medrol] Medrol 12:00:00 AM EDT completed [facility] ([facility] Cholecalciferol 25 MCG (1000 UT) UNK 08/13/2019 12:00:00 AM EST active 1 capsule eCW1 ([facility]) ferrous gluconate 324 MG Oral Tablet Ferrous Gluconate 324 (38 Fe) MG Ferrous Gluconate 324 (38 Fe) MG 08/13/2019 12:00:00 AM EST active 1 tablet with water or juice between meals eCW ([facility]) Cholecalciferol 25 MCG (1000 UT) UNK 08/13/2019 12:00:00 AM EST active 1 capsule eCW1 ([facility]) ferrous gluconate 324 MG Oral Tablet Ferrous Gluconate 324 (38 Fe) MG Ferrous Gluconate 324 (38 Fe) MG 08/13/2019 12:00:00 AM EST active 1 tablet with water or juice between meals [facility] ([facility]) meloxicam 7.5 MG Oral Tablet meloxicam 7.5 mg tablet meloxicam 7 .5 mg tablet completed meloxicam 7.5 MG Oral Tablet [facility] ([facility]) Acetaminophen 500 MG Oral Tablet acetaminophen 500 mg tablet acetaminophen 500 mg tablet completed acetaminophe n 500 MG Oral Tablet [facility] ([facility]) Buprenorphine 8 MG / Naloxone 2 MG Oral Strip buprenorphine 8 mg-naloxone 2 mg sublingual film buprenorphine 8 mg-naloxone 2 mg sublingual film completed buprenorphine 8 MG / naloxone 2 MG Sublingual Film [facility] ([facility]) Mupirocin 0.02 MG/MG Topical Ointment mupirocin 2 % to pical ointment mupirocin 2 % topical ointment completed mupirocin 0.02 MG/MG Topical Ointment [facility] ([facility]) methylprednisolone 4 mg tablets in a dose pack [id number] completed methylprednisolone 4 mg tablets in a dose pack [place] ([facility]) Insurance Providers Payer name Policy type / Coverage type Policy ID Covered republican ID Covered republican's relationship to love Policy Love Plan Information [facility] [id number] SP [id number] Managed Care - [facility] Community Plan P [id number] S [id number] Medicaid S [id number] S [id number] [facility] MCDO [id number] SP [id number] Managed Care - [facility] Community Plan P [id number] S [id number] [facility] MCDO [id number] SP [id number] Managed Care - [facility] P [id number] S [id number] [facility](MCAID) O [id number] S [id number] Medicaid S [id number] S [id number] MEDICAID [id number] SP [id number] MEDICAID [id number] SP [id number] [facility] Medigap Part B [id number] Self [id number] [place] Medigap Part B [id number] Self [id number] [employer] Health Maintenance Organization (HMO) [id number] Family Dependent [id number] Managed Care - [facility] P [id number] S [id number] [facility] Medigap Part B [id number] Self [id number] Medicaid [place] Medig[place] Part B [id number] Self [id number] [facility] Medigap Part B [id number] Self [id number] [place] Medigap Part B [id number] Self [id number] Medicaid S [id number] S [id number] [facility] [id number] SP [id number] Managed Care - [facility] P [id number] S [id number] Managed Care - [facility] P [id number] S [id number] [facility](MCAID) O [id number] S [id number] Managed Care - [facility] P [id number] S [id number] [facility] [id number] SP [id number] MEDICAID [id number] SP [id number] [facility] [id number] SP [id number] [place] O [id number] S [id number] MEDICAID [id number] SP [id number] MEDICAID [id number] SP [id number] MEDICAID [id number] SP [id number] Medicaid P [id number] S [id number] SELF PAY UNAVAILABLE SP UNAVAILA BLE [place] PHY [id number] HU2 [id number] [place]/307 [id number] HU2 [id number] [place]/307 [id number] HU2 [id number] PCAP [place] [id number] SP [id number] [place]/307 [id number] VALUE OPTIONS (MVP) [id number] HU2 [id number] PROGRESSIVE CO NO FAULT [id number] SP [id number] [id number] [id number] SP [id number] OTHER NO FAULT UN SP UN PCAP NEGRITO CO [id number] SP [id number] Problems, Conditions, and Diagnoses Code Display Name Description Problem Type Effective Dates Data Source(s) 141238668 Laceration without foreign body of left hand, initial encounter Laceration without foreign body of left hand, initial encounter 03/10/2020 02:28:55 PM EDT [facility] L65.9 [id number] Hair loss Problem 08/10/2019 12:00:00 AM ES T eCW1 ([facility]) [id number] Abnormal uterine and vaginal bleeding, u nspecified Abnormal uterine and vaginal bleeding, unspecified 07/25/2019 10:24:06 AM [facility] [id number] Female genitalia finding Female Genitalia Finding Prob dm 07/24/2019 12:00:00 AM PAULETTE RAFAEL ([facility]) [id number] Female genitalia finding Female Genitalia Finding Prob dm 07/24/2019 12:00:00 AM [place]ULE[place]E H[place] ([facility]) [id number] Female genitalia finding Female Genitalia Finding Prob dm 07/24/2019 12:00:00 AM EST [facility] ([facility]) [id number] Female genitalia finding Female Genitalia Finding Prob dm 07/24/2019 12:00:00 AM EST [facility] ([facility]) [id number] Female genitalia finding Female Genitalia Finding Prob dm 07/24/2019 12:00:00 AM EST [facility] ([facility]) [id number] Female genitalia finding Female Genitalia Finding Prob dm 07/24/2019 12:00:00 AM EST [facility] ([facility]) [id number] Female genitalia finding Female Genitalia Finding Prob dm 07/24/2019 12:00:00 AM EST [facility] ([facility]) Surgeries/Procedures Procedure Description Date Indications Data Source(s) Needle electromyography, each extremity, with related paraspinal areas, when performed, done with nerve conduction, amplitude and latency/velocity study; complete, five or more muscles studied, innervated by three or more nerves or four or more spinal levels (list separately in addition to the code for primary procedure). 04/08/2020 12:00:00 AM EDT MEDEN T ([facility] Nerve Conduction 11-12 Studies 04/08/2020 12:00:00 AM EDT [facility] ([facility] Physical Therapy Eval - Low Complexity 03/27/2020 12:0 0:00 AM EDT [facility] ([facility] ) RADEX WRIST COMPLETE MINIMUM 3 VIEWS 02/13/2020 12:00: 00 AM EDT [facility] ([facility] ) Results ID Date Data Source [id number] 05/13/2020 11:00:00 AM EST [place] ([facility]) Name Value Range Interpretation Code Description Data Gale rce(s) Supporting Document(s) SARS-CoV-2 (COVID-19) RNA [Presence] in Respiratory specimen by YARA with probe detection not detected not detected normal Sars Cov 2 RNA [facility]) ID Date Data Source [id number] 05/13/2020 11:00:00 AM EST [facility] ([facility]) Name Value Range Interpretation Code Description Data Gale rce(s) Supporting Document(s) SARS-CoV-2 (COVID-19) RNA [Presence] in Respiratory specimen by YARA with probe detection not detected not detected normal Sars Cov 2 RNA [facility] ([facility]) ID Date Data Source [id number] 05/13/2020 11:00:00 AM EST [facility] ([facility]) Name Value Range Interpretation Code Description Data Gale rce(s) Supporting Document(s) SARS-CoV-2 (COVID-19) RNA [Presence] in Respiratory specimen by YARA with probe detection not detected not detected normal Sars Cov 2 RNA [place] ([facility]) ID Date Data Source [id number] 05/13/2020 11:00:00 AM EST [facility] ([facility]) Name Value Range Interpretation Code Description Data Gale rce(s) Supporting Document(s) SARS-CoV-2 (COVID-19) RNA [Presence] in Respiratory specimen by YARA with probe detection not detected not detected normal Sars Cov 2 RNA [place] ([facility]) ID Date Data Source [id number] 05/13/2020 11:00:00 AM EST [facility] ([facility]) Name Value Range Interpretation Code Description Data Gale rce(s) Supporting Document(s) SARS-CoV-2 (COVID-19) RNA [Presence] in Respiratory specimen by YARA with probe detection not detected not detected normal Sars Cov 2 RNA [facility] ([facility]) ID Date Data Source [id number] 03/14/2020 01:19:00 PM EDT [facility] ([facility]) Name Value Range Interpretation Code Description Data Gale rce(s) Supporting Document(s) C reactive protein [Mass/volume] in Serum or Plasma by High sensitivity method Laboratory test result 0.00-0.30 [facility] ([facility]) Erythrocyte sedimentation rate by Westergren method 11 mm/hr 0-20 [facility] ([facility]) ID Date Data Source [id number] 03/14/2020 01:19:00 PM EDT [facility] ([facility]) Name Value Range Interpretation Code Description Data Gale rce(s) Supporting Document(s) Red Blood Count 3.84 10 4.00-5.40 [facility] ([facility]) Hemoglobin 12.4 g/dL 12.0-15.5 [facility] ([facility]) White Blood Count 5.1 10 4.0-10.0 [facility] ([facility]) Mean Corpuscular Hemoglobin 32.3 pg 27.0-33.0 [facility] ([facility]) Mean Corpuscular Volume 96.4 fl 80.0-96.0 M EDENT ([facility]) Mean Corpuscular HGB Conc 33.5 g/dL 32.0-36.5 MED[facility] ([facility]) Hematocrit 37.0 % 36.0-47.0 [facility] ([facility]) Platelet Count, Automated 171 10 150-450 [facility] ([facility]) Red Cell Distribution Width 11.6 % 11.5-14.5 [facility] ([facility]) Neutrophils % 68.0 % 36.0-66.0 [facility] ([facility] Lymph % 23.2 % 24.0-44.0 [facility] Eos % 2.6 % 0.0-3.0 [facility] ([facility]) Surry % 5.0 % 0.0-5.0 [facility] ([facility]) Immature Granulocyte % 0.4 % 0-3.0 [facility] ([facility]) Baso % 0.8 % 0.0-1.0 [facility] ([facility] Nucleated Red Blood Cell % 0.0 % 0-0 MED ENT ([facility]) Surry # 0.3 10 0.0-0.8 [facility] ([facility] Neutrophils # 3.4 10 1.5-8.5 [facility] ([facility]) Lymph # 1.2 10 1.5-5.0 [facility] ([facility] Eos # 0.1 10 0.0-0.5 [facility] ([facility] Baso # 0.0 10 0.0-0.2 [facility] ID Date Data Source [id number] 03/14/2020 01:19:00 PM EDT [facility] Name Value Range Interpretation Code Description Data Gale rce(s) Supporting Document(s) CRP < 0.30 MG/DL mg/dL 0.00-0.30 [facility] ID Date Data Source [id number] 03/14/2020 01:19:00 PM EDT [facility] Name Value Range Interpretation Code Description Data Gale rce(s) Supporting Document(s) ESR 11 mm/hr 0-20 N [facility] HCT 37.0 % 36.0-47.0 [facility] HGB 12.4 g/dL 12.0-15.5 N [facility] MCH 33.5 G/DL pg 32.0-36.5 [facility] MCHC 32.3 PG % 27.0-33.0 [facility] PLATELETS 171 10 10*3/mm3 150-450 N [facility] RBC 3.84 10 10*6/mm3 4.00-5.40 L [facility] RDW 11.6 % 11.5-14.5 [facility] WBC TOTAL 5.1 4.0-10.0 [facility] ID Date Data Source [id number] 03/10/2020 01:20:30 PM EDT [facility] Measurements & CalculationsHeight: 67 inches (5 ft. 7 in.) 170.18 cm Weight: 117 pounds 4 oz. 53.30 kg Body Mass Index (BMI): 18.43BMI Interpretation: UnderweightBody Surface Area (BSA): 1.61Weight Management Education Done (Nutrition/Physical Activity)Initial Intake Information From: patientRoom #: 1Infectious Disease / Travel ScreeningRecent travel for you or any close contacts? NoHave you had any close contact with anyone diagnosed with or under investigation for COVID-19 (coronavirus)? NoFever? NoRespiratory symptoms: cough, cold, congestion, shortness of breath, difficulty breathing? NoLoss of smell? NoLoss of taste? NoSmoking, Tobacco, Vaping or Smoke Exposure StatusSmoke Status: current every day smokerTobacco Use: YesDo you vape? NoMenstrual HistoryLast Menstrual Period (LMP): 02/22/2020Any possibility of ? NoHealthcare HistorySince your last office visit...Have you been admitted to the hospital? NoHave you been to an emergency room (ER) or urgent care clinic? Yes - [facility] EREmergency room (ER) or urgent care date reported today: 03/03/2020Have you seen another healthcare provider? NoHave you seen a dentist? NoIntake performed by: Josie Douglas MA, March 10, 2020 1:29 PMRate Your HealthIn general, would you say your health is? GoodPain AssessmentAre you currently having any pain which... You would like your provider to address? Yes Affects your activity level? YesDepression Screening - PHQ-2Over the last two weeks, have you... Had little interest or pleasure in doing things? Not at all Been feeling down, depressed, or hopeless? Not at all PHQ-2 Score: 0Screening, Brief Intervention, & Referral to Treatment (SBIRT)Pre-Screening Questions How many times have you have 4 or more drinks in a day? 0How many times have you used an illegal drug or used a prescription medication for a non-medical reason? 365Performed by: Josie Douglas MA, March 10, 2020 1:30 PMPatient History Medical History:B12 Defec iencyHep CAnxietyDepressionPTSDAsthmaGERDADHDSurgical History:Gastric BypassGallbladderFeeding tubeTubal ligationFamily History:Cancer - Lung (Maternal Grandmother)Aunt- Uterine CACousin- Breast CAHypertension (Mother)Social/Personal History: Chief Complaintfollow-up visit/ ER FU Left hand LACHistory of Present Illness (HPI)39 yo female presents for ED follow up after left hand laceration while washing dishes. She was told to keep the wound clean, dry, and apply bandages. She notes she has been accidentally hitting her hand throughout the day, which is causing increased pain and intermittent bleedi ng. ALso concerned because she is noticing some yellow/green thin dried fluid on her bandages. Wondering if she has an infection. No spreading redness, warmth, or purulent drainage. She would like a refill of naproxen for prn use for her hand pain.Transitions of Care InboundMedication Reconciliation & ReviewMedication List was reviewed and/or updated during this visit, including review of any [id number] medications, herbal therapies, and/or supplements.Allergy ReviewAllergy List was reviewed and/or updated during this visit.Adult Preventive CareProvider Calculated and Reviewed all Clinical Protocols for patient today. Labs/Meds/Other Counseling-Nutrition and Physical Activity:BMI Interpretation: Underweight (03/10/2020) Counseling: Done (03/10/2020) Physical Activity: Done (03/10/2020)Review of Systems Musculoskeletal: Complains of recent injury. Denies joint pain. Skin: Laceration with increased pain to left handNeurologic: Denies weakness, numbness/tingling. Physical ExamGeneral Appearance: well nourished, well hydrated, no acute distressUpper Extremity, Left: ROM, sensation, and strength left hand intact. Skin, Inspection: Small appx 1-1.5cm linear, superficial laceration across the ventral aspect of the left hand between the first and second metacarpal bones. Mild tenderness. No erythema, drainage, or warmth.Care Management Plan Transitions of CareInboundRate Your HealthIn general, would you say your health is? GoodAssessment & Plan Problems:Added: Laceration without foreign body of left hand, initial encounter ([id number])Assessment not SavedLaceration without foreign body of left hand; initial encounter (ICD10- S61.412A): no s/s of infection visible. appears to be healing well. discussed supportive care. sent mupirocin and naproxen. explained to patient s/s of infection that would warrant urgent eval. follow up if not improving or worsening. pt expresses understanding to plan. Medications:MUPIROCIN 2 % EXTERNAL OINTMENTOXCARBAZEPINE 150 MG ORAL TABLETFERROUS GLUCONATE 324 (37.5 FE) MG ORAL TABLETBUSPIRONE HCL 15 MG ORAL TABLETNAPROXEN 500 MG ORAL TABLETESTRACE 0.1 MG/GM VAGINAL CREAMACE TENNIS ELBOW BRACEBUSPIRONE HCL 30 MG ORAL TABLETREMERON TABLETEPIPEN 2-ULISES 0.3 MG/0.3ML INJECTION SOLUTION AUTO- INJECTORSUBOXONE 12-3 MG SUBLINGUAL FILMSALINE MIST SPRAY 0.65 % NASAL SOLUTIONTYLENOL EXTRA STRENGTH 500 MG ORAL TABLETVENTOLIN HFA 108 (90 BASE) MCG/ACT INHALATION AEROSOL SOLUTIONMedication Changes:Refilled:NAPROXEN 500 MG ORAL TABLET-One po q12h twice daily for pain. MDD 2 Qty: 30[Tablet] Refills: 0 Method: ElectronicNew Prescription:MUPIROCIN 2 % EXTERNAL OINTMENT-apply twice daily for 10 days Qty: 30[Tube] Refills: 1 Method: ElectronicRemoved:ARNUITY ELLIPTA 200 MCG/ACT INHALATION AEROSOL POWDER BREATH ACTIVATED-one inhalation once dailyChanged: To: NAPROXEN 500 MG ORAL TABLET-One po q12h twice daily for pain. MDD 2 Qty: 30[Tablet] Refills: 0Allergies:PENICILLIN (Critical)* FISH (Critical)* BEE STINGS (Critical)* LATEX (Critical)* CRANBERRIES (Moderate)* CABBAGE (Mild)Orders:Adult - Ofc Vst, EST, Level III [CPT-67980] Follow-Up Return to clinic: as needed Plan Comments: pt has routine follow up with dr cisneros scheduledClinical Visit Summary DeclinedMedications:MUPIROCIN 2 % EXTERNAL OINTMENT (MUPIROCIN) apply twice daily for 10 days #30[Tube] x 1 Route:EXTERNAL Entered and Authorized by: Ada MACHUCA Method used: Electronically to [facility] (retail) [address] [place] [address] Note to Pharmacy: Route: EXTERNAL; RxID: [id number] 500 MG ORAL TABLET (NAPROXEN) One po q12h twice daily for pain. MDD 2 #30[Tablet] x 0 Entered and Authorized by: Ada MACHUCA Method used: Electronically to [employer] (retail) [facility] [place] [address] Note to Pharmacy: Route: ORAL; RxID: [id number] Note 39 yo female PT FU ER for L hand LAC, Pt states suspects possible infection of wound. Pt reports severe anxiety over hearing from the nurse that she may need stitches today. Pt reports pain 5/10 today. Pt requests script for 800 Motrin please & refill on Arnuity inhaler. Nurses Note 39 yo female PT FU ER for L hand LAC, Pt states suspects possible infection of wound. Pt reports severe anxiety over hearing from the nurse that she may need stitches today. Pt reports pain 5/10 today. Pt requests script for 800 Motrin please & refill on Arnuity inhaler. Nurses Note Applied triple antibiotic cream and bandaid to L hand wound laceration.Assessment & Plan Name Value Range Interpretation Code Description Data Gale rce(s) Supporting Document(s) ID Date Data Source VITAMIN D 1,25 DIHYDROXY 08/10/2019 12:00:00 AM EST eCW1 ([facility]) Name Value Range Interpretation Code Description Data Gale rce(s) Supporting Document(s) 38.8 19.9-79.3 VITAMIN D 1,25 DIHYDROXY eCW1 ([facility]) ID Date Data Source TSH 08/10/2019 12:00:00 AM EST eCW1 ([facility]) Name Value Range Interpretation Code Description Data Gale rce(s) Supporting Document(s) 2.070 0.358-3.740 THYROID STIMULATING HORM ONE eCW1 ([facility]) ID Date Data Source FERRITIN 08/10/2019 12:00:00 AM EST eCW1 ([facility]) Name Value Range Interpretation Code Description Data Gale rce(s) Supporting Document(s) 8 8252 FERRITIN eCW1 (Pending sale to [facility]) ID Date Data Source CBC - Complete Blood Count 08/10/2019 12:00:00 AM EST eCW1 ( [facility]) Name Value Range Interpretation Code Description Data Gale rce(s) Supporting Document(s) 4.5 4.0-10.0 WHITE BLOOD COUNT eCW1 ([facility]) 12.4 12.0-15.5 HEMOGLOBIN eCW1 ([facility]) 3.93 4.00-5.40 RED BLOOD COUNT eCW1 ([facility]) 96.4 80.0-96.0 MEAN CORPUSCULAR VOLUME e CW1 ([facility]) 37.9 36.0-47.0 HEMATOCRIT eCW1 ([facility]) 31.6 27.0-33.0 MEAN CORPUSCULAR HEMOGLOB IN eCW1 ([facility]) 32.7 32.0-36.5 MEAN CORPUSCULAR HGB CONC eCW1 ([facility]) 12.3 11.5-14.5 RED CELL DISTRIBUTION WID TH eCW1 ([facility]) 152 150-450 PLATELET COUNT, AUTOMATED eCW1 ([facility]) Procedure Vital Signs ID Date Data Source UNK Name Value Range Interpretation Code Description Data Source(s) Body weight 1968 [oz_av] 1968 [oz_av] RAFAEL ([facility]) Systolic blood pressure 120 mm[Hg] 120 mm[Hg] A THENA ([facility]) Body mass index (BMI) [Ratio] 19.3 kg/m2 19.3 k g/m2 RAFAEL ([facility]) Body height 67 [in_i] 67 [in_i] RAFAEL ([facility]) Diastolic blood pressure 69 mm[Hg] 69 mm[Hg] RAFAEL ([facility]) Body weight 1874 [oz_av] 1874 [oz_av] RAFAEL ([facility]) Systolic blood pressure 97 mm[Hg] 97 mm[Hg] A THENA ([facility]) Body mass index (BMI) [Ratio] 18.3 kg/m2 18.3 k g/m2 RAFAEL ([facility]) Body height 67 [in_i] 67 [in_i] RAFAEL ([facility]) Diastolic blood pressure 62 mm[Hg] 62 mm[Hg] RAFAEL ([facility]) Body weight 1874 [oz_av] 1874 [oz_av] RAFAEL ([facility]) Systolic blood pressure 97 mm[Hg] 97 mm[Hg] A THENA ([facility]) Body mass index (BMI) [Ratio] 18.3 kg/m2 18.3 k g/m2 RAFAEL ([facility]) Body height 67 [in_i] 67 [in_i] RAFAEL ([facility]) Diastolic blood pressure 62 mm[Hg] 62 mm[Hg] RAFAEL ([facility]) Body weight 1874 [oz_av] 1874 [oz_av] RAFAEL ([facility]) Systolic blood pressure 97 mm[Hg] 97 mm[Hg] A THENA ([facility]) Body mass index (BMI) [Ratio] 18.3 kg/m2 18.3 k g/m2 RAFAEL ([facility]) Body height 67 [in_i] 67 [in_i] RAFAEL ([facility]) Diastolic blood pressure 62 mm[Hg] 62 mm[Hg] RAFAEL ([facility]) Body height 67 [in_i] 67 [in_i] RAFAEL ([facility]) Body height 67 [in_i] 67 [in_i] RAFAEL ([facility]) Body height 67 [in_i] 67 [in_i] RAFAEL ([facility]) Body height 67 [in_i] 67 [in_i] RAFAEL ([facility]) Body height 67 [in_i] 67 [in_i] RAFAEL ([facility]) Body height 67 [in_i] 67 [in_i] RAFAEL ([facility]) Body weight 1880 [oz_av] 1880 [oz_av] RAFAEL ([facility]) Body mass index (BMI) [Ratio] 18.4 kg/m2 18.4 k g/m2 RAFAEL ([facility]) Body height 67 [in_i] 67 [in_i] RAFAEL ([facility]) Body weight 1880 [oz_av] 1880 [oz_av] RAFAEL ([facility]) Body mass index (BMI) [Ratio] 18.4 kg/m2 18.4 k g/m2 RAFAEL ([facility]) Body height 67 [in_i] 67 [in_i] RAFAEL ([facility]) Body weight 1880 [oz_av] 1880 [oz_av] RAFAEL ([facility]) Body mass index (BMI) [Ratio] 18.4 kg/m2 18.4 k g/m2 RAFAEL ([facility]) Body height 67 [in_i] 67 [in_i] RAFAEL ([facility]) Body weight 1880 [oz_av] 1880 [oz_av] RAFAEL ([facility]) Body mass index (BMI) [Ratio] 18.4 kg/m2 18.4 k g/m2 RAFAEL ([facility]) Body height 67 [in_i] 67 [in_i] RAFAEL ([facility]) Body weight 1880 [oz_av] 1880 [oz_av] RAFAEL ([facility]) Body mass index (BMI) [Ratio] 18.4 kg/m2 18.4 k g/m2 RAFAEL ([facility]) Body height 67 [in_i] 67 [in_i] RAFAEL ([facility]) Body weight 1880 [oz_av] 1880 [oz_av] RAFAEL ([facility]) Body mass index (BMI) [Ratio] 18.4 kg/m2 18.4 k g/m2 RAFAEL ([facility]) Body weight 1880 [oz_av] 1880 [oz_av] RAFAEL ([facility]) Body mass index (BMI) [Ratio] 18.4 kg/m2 18.4 k g/m2 RAFAEL ([facility]) Body height 67 [in_i] 67 [in_i] RAFAEL ([facility]) Body mass index (BMI) [Ratio] 18.0 kg/m2 18.0 k g/m2 MEDENT ([facility]) Body weight 115.00 [lb_av] 115.00 [lb_av] MEDEN T ([facility]) Body height 67 [in_i] 67 [in_i] MEDENT ([facility]) 5'7" Body temperature 97.1 [degF] 97.1 [degF] MEDENT ([facility]) Body mass index (BMI) [Ratio] 18.0 kg/m2 18.0 k g/m2 MEDENT ([facility]) Body weight 115.00 [lb_av] 115.00 [lb_av] MEDEN T ([facility]) Body height 67 [in_i] 67 [in_i] MEDENT ([facility]) 5'7" Body temperature 96.1 [degF] 96.1 [degF] MEDENT ([facility]) Body weight 1936 [oz_av] 1936 [oz_av] RAFAEL ([facility]) Systolic blood pressure 101 mm[Hg] 101 mm[facility]Hg] [facility] Body height 67 [in_i] 67 [in_i] RAFAEL ([facility]) Diastolic blood pressure 71 mm[Hg] 71 mm[Hg] RAFAEL ([facility]) Body weight 1936 [oz_av] 1936 [oz_av] RAFAEL ([facility]) Systolic blood pressure 101 mm[Hg] 101 mm[Hg] [facility] Body height 67 [in_i] 67 [in_i] RAFAEL ([facility]) Diastolic blood pressure 71 mm[Hg] 71 mm[Hg] RAFAEL ([facility]) Body weight 1936 [oz_av] 1936 [oz_av] RAFAEL ([facility]) Systolic blood pressure 101 mm[Hg] 101 mm[Hg] A THENA ([facility]) Body height 67 [in_i] 67 [in_i] RAFAEL ([facility]) Diastolic blood pressure 71 mm[Hg] 71 mm[Hg] RAFAEL ([facility]) Body weight 1936 [oz_av] 1936 [oz_av] RAFAEL ([facility]) Systolic blood pressure 101 mm[Hg] 101 mm[Hg] A THENA ([facility]) Body height 67 [in_i] 67 [in_i] RAFAEL ([facility]) Diastolic blood pressure 71 mm[Hg] 71 mm[Hg] RAFAEL ([facility]) Body weight 1936 [oz_av] 1936 [oz_av] RAFAEL ([facility]) Systolic blood pressure 101 mm[Hg] 101 mm[Hg] A THENA ([facility]) Body height 67 [in_i] 67 [in_i] RAFAEL ([facility]) Diastolic blood pressure 71 mm[Hg] 71 mm[Hg] RAFAEL ([facility]) Body weight 1936 [oz_av] 1936 [oz_av] RAFAEL ([facility]) Systolic blood pressure 101 mm[Hg] 101 mm[Hg] A THENA ([facility]) Body height 67 [in_i] 67 [in_i] RAFAEL ([facility]) Diastolic blood pressure 71 mm[Hg] 71 mm[Hg] RAFAEL ([facility]) Body weight 1936 [oz_av] 1936 [oz_av] RAFAEL ([facility]) Systolic blood pressure 101 mm[Hg] 101 mm[Hg] A THENA ([facility]) Body height 67 [in_i] 67 [in_i] RAFAEL ([facility]) Diastolic blood pressure 71 mm[Hg] 71 mm[Hg] RAFAEL ([facility]) Body weight 1948.8 [oz_av] 1948.8 [oz_av] ATHEN A ([facility]) Systolic blood pressure 116 mm[Hg] 116 mm[Hg] A THENA ([facility]) Body height 67 [in_i] 67 [in_i] RAFAEL ([facility]) Diastolic blood pressure 77 mm[Hg] 77 mm[Hg] RAFAEL ([facility]) Body weight 1948.8 [oz_av] 1948.8 [oz_av] ATHEN A ([facility]) Systolic blood pressure 116 mm[Hg] 116 mm[Hg] [facility] Body height 67 [in_i] 67 [in_i] RAFAEL ([facility]) Diastolic blood pressure 77 mm[Hg] 77 mm[Hg] RAFAEL ([facility]) Body weight 1948.8 [oz_av] 1948.8 [oz_av] ATHEN A ([facility]) Systolic blood pressure 116 mm[Hg] 116 mm[Hg] [facility] Body height 67 [in_i] 67 [in_i] RAFAEL ([facility]) Diastolic blood pressure 77 mm[Hg] 77 mm[Hg] RAFAEL ([facility]) Body weight 1948.8 [oz_av] 1948.8 [oz_av] ATHEN A ([facility]) Systolic blood pressure 116 mm[Hg] 116 mm[Hg] [facility] Body height 67 [in_i] 67 [in_i] RAFAEL ([facility]) Diastolic blood pressure 77 mm[Hg] 77 mm[Hg] RAFAEL ([facility]) Body weight 1948.8 [oz_av] 1948.8 [oz_av] ATHEN A ([facility]) Systolic blood pressure 116 mm[Hg] 116 mm[Hg] [facility] Body height 67 [in_i] 67 [in_i] RAFAEL ([facility]) Diastolic blood pressure 77 mm[Hg] 77 mm[Hg] RAFAEL ([facility]) Body weight 1948.8 [oz_av] 1948.8 [oz_av] ATHEN A ([facility]) Systolic blood pressure 116 mm[Hg] 116 mm[Hg] A THENA ([facility]) Body height 67 [in_i] 67 [in_i] RAFAEL ([facility]) Diastolic blood pressure 77 mm[Hg] 77 mm[Hg] RAFAEL ([facility]) Body weight 1948.8 [oz_av] 1948.8 [oz_av] ATHEN A ([facility]) Systolic blood pressure 116 mm[Hg] 116 mm[Hg] A THENA ([facility]) Body height 67 [in_i] 67 [in_i] RAFAEL ([facility]) Diastolic blood pressure 77 mm[Hg] 77 mm[Hg] RAFAEL ([facility]) Diastolic blood pressure 58 mm[Hg] 58 mm[Hg] eCW1 ([facility]) Systolic blood pressure 110 mm[Hg] 110 mm[Hg] e CW1 ([facility]) Body mass index (BMI) [Ratio] 20.22 kg/m2 20.22 kg/m2 eCW1 ([facility]) Body height 65.5 [in_us] 65.5 [in_us] eCW1 ([facility]) Body weight Measured 123.4 [lb_av] 123.4 [lb_av ] eCW1 ([facility]) Patient Treatment Plan of Care Planned Activity Planned Date Details Description Data Source (s) Cholecalciferol 25 MCG (1000 UT) 08/13/2019 12:00:00 AM EST eCW1 ([facility]) ferrous gluconate 324 MG Oral Tablet 08/13/2019 12:00:00 AM EST eCW1 ([facility]) ferrous gluconate 324 MG Oral Tablet 08/13/2019 12:00:00 AM EST eCW1 ([facility]) Cholecalciferol 25 MCG (1000 UT) 08/13/2019 12:00:00 AM EST eCW1 ([facility]) Mupirocin 0.02 MG/MG Topical Ointment RAFAEL ([facility]) methylprednisolone 4 mg tablets in a dose pack RAFAEL ([facility]) meloxicam 7.5 MG Oral Tablet RAFAEL ([facility]) Buprenorphine 8 MG / Naloxone 2 MG Oral Strip RAFAEL ([facility]) Acetaminophen 500 MG Oral Tablet RAFAEL ([facility])
[2020-07-25 15:13] LABS: BASO % 0.8 % (0.0-1.0); EOS # 0.1 10^3/uL (0.0-0.5); EOS % 2.2 % (0.0-3.0); HEMATOCRIT 42.3 % (36.0-47.0); HEMOGLOBIN 14.1 g/dl (12.0-15.5); LYMPH # 1.2 10^3/uL (1.5-5.0); MEAN CORPUSCULAR HEMOGLOBIN 32.2 pg (27.0-33.0); MEAN CORPUSCULAR HGB CONC 33.3 g/dl (32.0-36.5); MEAN CORPUSCULAR VOLUME 96.6 fl (80.0-96.0); MONO # 0.2 10^3/uL (0.0-0.8); MONO % 4.8 % (0.0-5.0); NEUTROPHILS # 3.5 10^3/uL (1.5-8.5); PLATELET COUNT, AUTOMATED 123 10^3/uL (150-450); RED BLOOD COUNT 4.38 10^6/uL (4.00-5.40)
[2020-07-25] MEDS ORDERED: methylPREDNISolone 125MG 2ML VIAL IV ONE (15:15)
[2020-07-25] MEDS ORDERED: COMBIVENT RESPIMAT 100-20MCG INHALER 4GM INH ONE (15:15)
--- OUTSIDE RECORDS SUMMARY | 2020-07-25 15:38 | CCD ---
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 ([facility]) Body height 67 [in_i] 67 [in_i] RAFAEL ([facility]) Diastolic blood pressure 62 mm[Hg] 62 mm[Hg] RAFAEL ([facility]) Body weight 1874 [oz_av] 1874 [oz_av] RAFAEL ([facility]) Systolic blood pressure 97 mm[Hg] 97 mm[Hg] A THENA ([facility]) Body mass index (BMI) [Ratio] 18.3 kg/m2 18.3 k g/m2 RAFAEL ([facility]) Body height 67 [in_i] 67 [in_i] RAFAEL ([facility]) Diastolic blood pressure 62 mm[Hg] 62 mm[Hg] RAFAEL ([facility]) Body weight 1874 [oz_av] 1874 [oz_av] RAFAEL ([facility]) Systolic blood pressure 97 mm[Hg] 97 mm[Hg] A THENA ([facility]) Body mass index (BMI) [Ratio] 18.3 kg/m2 18.3 k g/m2 RAFAEL ([facility]) Body height 67 [in_i] 67 [in_i] RAFAEL ([facility]) Diastolic blood pressure 62 mm[Hg] 62 mm[Hg] RAFAEL ([facility]) Body height 67 [in_i] 67 [in_i] RAFAEL ([facility]) Body height 67 [in_i] 67 [in_i] RAFAEL ([facility]) Body height 67 [in_i] 67 [in_i] RAFAEL ([facility]) Body height 67 [in_i] 67 [in_i] RAFAEL ([facility]) Body height 67 [in_i] 67 [in_i] RAFAEL ([facility]) Body height 67 [in_i] 67 [in_i] RAFAEL ([facility]) Body weight 1880 [oz_av] 1880 [oz_av] RAFAEL ([facility]) Body mass index (BMI) [Ratio] 18.4 kg/m2 18.4 k g/m2 RAFAEL ([facility]) Body height 67 [in_i] 67 [in_i] RAFAEL ([facility]) Body weight 1880 [oz_av] 1880 [oz_av] RAFAEL ([facility]) Body mass index (BMI) [Ratio] 18.4 kg/m2 18.4 k g/m2 RAFAEL ([facility]) Body height 67 [in_i] 67 [in_i] RAFAEL ([facility]) Body weight 1880 [oz_av] 1880 [oz_av] RAFAEL ([facility]) Body mass index (BMI) [Ratio] 18.4 kg/m2 18.4 k g/m2 RAFAEL ([facility]) Body height 67 [in_i] 67 [in_i] RAFAEL ([facility]) Body weight 1880 [oz_av] 1880 [oz_av] RAFAEL ([facility]) Body mass index (BMI) [Ratio] 18.4 kg/m2 18.4 k g/m2 RAFAEL ([facility]) Body height 67 [in_i] 67 [in_i] RAFAEL ([facility]) Body weight 1880 [oz_av] 1880 [oz_av] RAFAEL ([facility]) Body mass index (BMI) [Ratio] 18.4 kg/m2 18.4 k g/m2 RAFAEL ([facility]) Body height 67 [in_i] 67 [in_i] RAFAEL ([facility]) Body weight 1880 [oz_av] 1880 [oz_av] RAFAEL ([facility]) Body mass index (BMI) [Ratio] 18.4 kg/m2 18.4 k g/m2 RAFAEL ([facility]) Body weight 1880 [oz_av] 1880 [oz_av] RAFAEL ([facility]) Body mass index (BMI) [Ratio] 18.4 kg/m2 18.4 k g/m2 RAFAEL ([facility]) Body height 67 [in_i] 67 [in_i] RAFAEL ([facility]) Body mass index (BMI) [Ratio] 18.0 kg/m2 18.0 k g/m2 MEDENT ([facility]) Body weight 115.00 [lb_av] 115.00 [lb_av] MEDEN T ([facility]) Body height 67 [in_i] 67 [in_i] MEDENT ([facility]) 5'7" Body temperature 97.1 [degF] 97.1 [degF] MEDENT ([facility]) Body mass index (BMI) [Ratio] 18.0 kg/m2 18.0 k g/m2 MEDENT ([facility]) Body weight 115.00 [lb_av] 115.00 [lb_av] MEDEN T ([facility]) Body height 67 [in_i] 67 [in_i] MEDENT ([facility]) 5'7" Body temperature 96.1 [degF] 96.1 [degF] MEDENT ([facility]) Body weight 1936 [oz_av] 1936 [oz_av] RAFAEL ([facility]) Systolic blood pressure 101 mm[Hg] 101 mm[Hg] [facility] Body height 67 [in_i] 67 [in_i] RAFAEL ([facility]) Diastolic blood pressure 71 mm[Hg] 71 mm[Hg] RAFAEL ([facility]) Body weight 1936 [oz_av] 1936 [oz_av] RAFAEL ([facility]) Systolic blood pressure 101 mm[Hg] 101 mm[Hg] [facility] Body height 67 [in_i] 67 [in_i] RAFAEL ([facility]) Diastolic blood pressure 71 mm[Hg] 71 mm[Hg] RAFAEL ([facility]) Body weight 1936 [oz_av] 1936 [oz_av] RAFAEL ([facility]) Systolic blood pressure 101 mm[Hg] 101 mm[Hg] A THENA ([facility]) Body height 67 [in_i] 67 [in_i] RAFAEL ([facility]) Diastolic blood pressure 71 mm[Hg] 71 mm[Hg] RAFAEL ([facility]) Body weight 1936 [oz_av] 1936 [oz_av] RAFAEL ([facility]) Systolic blood pressure 101 mm[Hg] 101 mm[Hg] A THENA ([facility]) Body height 67 [in_i] 67 [in_i] RAFAEL ([facility]) Diastolic blood pressure 71 mm[Hg] 71 mm[Hg] RAFAEL ([facility]) Body weight 1936 [oz_av] 1936 [oz_av] RAFAEL ([facility]) Systolic blood pressure 101 mm[Hg] 101 mm[Hg] A THENA ([facility]) Body height 67 [in_i] 67 [in_i] RAFAEL ([facility]) Diastolic blood pressure 71 mm[Hg] 71 mm[Hg] RAFAEL ([facility]) Body weight 1936 [oz_av] 1936 [oz_av] RAFAEL ([facility]) Systolic blood pressure 101 mm[Hg] 101 mm[Hg] A THENA ([facility]) Body height 67 [in_i] 67 [in_i] RAFAEL ([facility]) Diastolic blood pressure 71 mm[Hg] 71 mm[Hg] RAFAEL ([facility]) Body weight 1936 [oz_av] 1936 [oz_av] RAFAEL ([facility]) Systolic blood pressure 101 mm[Hg] 101 mm[Hg] A THENA ([facility]) Body height 67 [in_i] 67 [in_i] RAFAEL ([facility]) Diastolic blood pressure 71 mm[Hg] 71 mm[Hg] RAFAEL ([facility]) Body weight 1948.8 [oz_av] 1948.8 [oz_av] ATHEN A ([facility]) Systolic blood pressure 116 mm[Hg] 116 mm[Hg] A THENA ([facility]) Body height 67 [in_i] 67 [in_i] RAFAEL ([facility]) Diastolic blood pressure 77 mm[Hg] 77 mm[Hg] RAFAEL ([facility]) Body weight 1948.8 [oz_av] 1948.8 [oz_av] ATHEN A ([facility]) Systolic blood pressure 116 mm[Hg] 116 mm[Hg] [facility] Body height 67 [in_i] 67 [in_i] RAFAEL ([facility]) Diastolic blood pressure 77 mm[Hg] 77 mm[Hg] RAFAEL ([facility]) Body weight 1948.8 [oz_av] 1948.8 [oz_av] ATHEN A ([facility]) Systolic blood pressure 116 mm[Hg] 116 mm[Hg] [facility] Body height 67 [in_i] 67 [in_i] RAFAEL ([facility]) Diastolic blood pressure 77 mm[Hg] 77 mm[Hg] RAFAEL ([facility]) Body weight 1948.8 [oz_av] 1948.8 [oz_av] ATHEN A ([facility]) Systolic blood pressure 116 mm[Hg] 116 mm[Hg] [facility] Body height 67 [in_i] 67 [in_i] RAFAEL ([facility]) Diastolic blood pressure 77 mm[Hg] 77 mm[Hg] RAFEAL ([facility]) Body weight 1948.8 [oz_av] 1948.8 [oz_av] ATHEN A ([facility]) Systolic blood pressure 116 mm[Hg] 116 mm[Hg] [facility] Body height 67 [in_i] 67 [in_i] RAFAEL ([facility]) Diastolic blood pressure 77 mm[Hg] 77 mm[Hg] RAFAEL ([facility]) Body weight 1948.8 [oz_av] 1948.8 [oz_av] ATHEN A ([facility]) Systolic blood pressure 116 mm[Hg] 116 mm[Hg] A THENA ([facility]) Body height 67 [in_i] 67 [in_i] RAFAEL ([facility]) Diastolic blood pressure 77 mm[Hg] 77 mm[Hg] RAFAEL ([facility]) Body weight 1948.8 [oz_av] 1948.8 [oz_av] ATHEN A ([facility]) Systolic blood pressure 116 mm[Hg] 116 mm[Hg] A THENA ([facility]) Body height 67 [in_i] 67 [in_i] RAFAEL ([facility]) Diastolic blood pressure 77 mm[Hg] 77 mm[Hg] RAFAEL ([facility]) Diastolic blood pressure 58 mm[Hg] 58 mm[Hg] eCW1 ([facility]) Systolic blood pressure 110 mm[Hg] 110 mm[Hg] e CW1 ([facility]) Body mass index (BMI) [Ratio] 20.22 kg/m2 20.22 kg/m2 eCW1 ([facility]) Body height 65.5 [in_us] 65.5 [in_us] eCW1 ([facility]) Body weight Measured 123.4 [lb_av] 123.4 [lb_av ] eCW1 ([facility]) Patient Treatment Plan of Care Planned Activity Planned Date Details Description Data Source (s) Cholecalciferol 25 MCG (1000 UT) 08/13/2019 12:00:00 AM EST eCW1 ([facility]) ferrous gluconate 324 MG Oral Tablet 08/13/2019 12:00:00 AM EST eCW1 ([facility]) ferrous gluconate 324 MG Oral Tablet 08/13/2019 12:00:00 AM EST eCW1 ([facility]) Cholecalciferol 25 MCG (1000 UT) 08/13/2019 12:00:00 AM EST eCW1 ([facility]) Mupirocin 0.02 MG/MG Topical Ointment RAFAEL ([facility]) methylprednisolone 4 mg tablets in a dose pack RAFAEL ([facility]) meloxicam 7.5 MG Oral Tablet RAFAEL ([facility]) Buprenorphine 8 MG / Naloxone 2 MG Oral Strip RAFAEL ([facility]) Acetaminophen 500 MG Oral Tablet RAFAEL ([facility])
[2020-07-25 15:42] LABS: BLOOD UREA NITROGEN 9 MG/DL (7-18); CALCIUM LEVEL 9.6 MG/DL (8.5-10.1); CARBON DIOXIDE LEVEL 29 MEQ/L (21-32); CHLORIDE LEVEL 106 MEQ/L (98-107); CK-MB VALUE MASS 1.1 NG/ML (<3.6); CPK CREATINE PHOSPHOKINASE 163 U/L (26-192); CREATININE FOR GFR 0.94 MG/DL (0.55-1.30); FREE T4 1.04 NG/DL (0.76-1.46); GLOMERULAR FILTRATION RATE > 60.0 (>58); GLUCOSE, FASTING 76 MG/DL (70-100); MB/CK RELATIVE INDEX 0.67 (< OR =4); NT-PRO BNP 380 PG/ML (<125); POTASSIUM SERUM 4.1 MEQ/L (3.5-5.1); SODIUM LEVEL 142 MEQ/L (136-145); TROPONIN I < 0.02 NG/ML (< 0.10)
[2020-07-25 15:43] LABS: INR 0.9; PROTHROMBIN TIME 12.3 SECONDS (12.5-14.3)
[2020-07-25 15:44] LABS: PARTIAL THROMBOPLASTIN TIME 26.1 SECONDS (24.2-38.5)
[2020-07-25 15:47] LABS: ABG BASE EXCESS -1.4 (-2.0-2.0); ABG HCO3 23.5 MEQ/L (22.0-26.0); ABG O2 SATURATION 97.8 % (95.0-99.0); ABG PARTIAL PRESSURE O2 104.5 mmHg (75.0-100.0); ABG STANDARD HCO3 23.3 MEQ/L (22.0-26.0); ABG TOTAL CO2 24.7 MEQ/L (22.0-29.0); ABG pH (ARTERIAL) 7.386 UNITS (7.350-7.450)
--- NOTE | 2020-07-25 16:01 | REP ---
INDICATION: CHEST PAIN. COMPARISON: 03/10/2027. TECHNIQUE: SINGLE PORTABLE AP VIEW OF THE CHEST WAS PERFORMED. FINDINGS: THERE IS NO ACUTE INFILTRATE OR PULMONARY EDEMA. LUNGS ARE CLEAR. HEART IS NOT SIGNIFICANTLY ENLARGED. MEDIASTINAL SILHOUETTE IS UNREMARKABLE. THE VISUALIZED OSSEOUS STRUCTURES ARE INTACT. IMPRESSION: NO ACUTE PULMONARY DISEASE. <Electronically signed by Quentin Modi > 07/25/20 0473
[2020-07-25 16:16] VITALS: O2SAT 99
[2020-07-25] MEDS ORDERED: VENTAER INH (16:27)
[2020-07-25] MEDS ORDERED: PRED20TA PO (16:28)
[2020-07-25 16:30] VITALS: BP 112/68
--- NOTE | 2020-07-25 20:16 | ECGEPIP ---
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
== END 2020-07-25 16:43 | disposition home or self-care (01) ==
LOC: M ED 13:00
DX: J45.909 Unspecified asthma, uncomplicated (principal); R06.02 Shortness of breath; Z20.822 Contact with and (suspected) exposure to COVID-19; K21.9 Gastro-esophageal reflux disease without esophagitis; F31.9 Bipolar disorder, unspecified; F41.9 Anxiety disorder, unspecified; Z98.84 Bariatric surgery status; F17.200 Nicotine dependence, unspecified, uncomplicated; Z88.0 Allergy status to penicillin; Z88.8 Allergy status to other drugs, medicaments and biological substances; Z91.040 Latex allergy status; Z79.51 Long term (current) use of inhaled steroids; Z79.899 Other long term (current) drug therapy
CPT/HCPCS: 36600; 71045; 80048; 82550; 82553; 82803; 83880; 84439; 84443; 85025; 85610; 85730; 87804; 93005; 93041; 94640; 94760; 96374; 99285; J2930; U0003

== ENCOUNTER → 2020-10-28 | Outpatient (CLI) | payer OTHER ==
[~2020-10-28] MED LIST changes: +IBUP-1114 PO; +PRED20TA PO
--- NOTE | 2020-10-28 11:22 | PFTRPT ---
Height: 67.00 Inches Weight: 115.00 Lbs BSA: 1.60 Diagnosis: R06.02 DATE: 10/28/2020 ORDERED BY: Shiloh Lambert NP Pre and post bronchodilator studies have excellent technical quality. Some difficulty with required maneuvers is noted. Forced vital capacity is Normal. FEV1 is in proportion. Obstructive index is therefore normal. Expiratory limit of the flow-volume loop normal. No significant bronchodilator response is identified. The patient was unable to perform the plethysmography maneuvers required. Slow vital capacity is generally in proportion to the forced maneuver. Diffusing capacity is normal and remains normal correct for alveolar volume. Hemoglobin is acceptable at 13.2. IMPRESSION: Essentially normal study. Please correlate clinically. MTDD
== END ==
LOC: M CARPUL 10:28
PROVIDERS: ATTEND Nurse Practitioner Adult Health
DX: R06.02 Shortness of breath (principal)

== ENCOUNTER → 2020-11-25 | Outpatient (CLI) | payer OTHER ==
[~2020-11-25] MED LIST changes: +METHACHOLINE KIT (J7674) INH ONE
--- NOTE | 2020-11-25 11:44 | PFTRPT ---
Site: [facility], [address] [place], [address] ID: [id number] Name: SHANE ROBB Visit Date: 11/25/2020 Second ID: [id number] Referring Doctor: Shiloh Hernandez Reviewing Doctor: Artur Godinez MD Flower Maker: Amrita HERNANDEZ RRT Age: 40 : 1980 Sex: Female Race: Height: 67.00 Inches Weight: 116.00 Lbs BSA: 1.60 Order IDs: [id number] Requested Test(s): <RESP-PFT.METH CHAL> Diagnosis: R06.02 four puffs of albuterol for post bronchodilator. Review Status: Not Reviewed Pre-Bronch Post-Bronch Pred Actual %Pred Actual %Chng SPIROMETRY FVC (L) 4.05 4.12 101 4.18 1 FEV1 (L) 3.28 3.77 114 3.54 -6 FEV1/FVC (%) 82 91 111 85 -7 FEF 25% (L/sec) 5.74 6.09 106 5.01 -17 FEF 50% (L/sec) 4.17 6.11 146 4.47 -26 FEF 75% (L/sec) 1.64 3.14 191 2.35 -25 FEF 25-75% (L/sec) 3.26 5.27 161 3.85 -26 FEF Max (L/sec) 7.42 6.94 93 5.34 -23 FIVC (L) 2.35 3.68 56 FIF 50% (L/sec) 3.66 4.43 121 3.61 -18 FIF Max (L/sec) 4.45 4.11 -7 Expiratory Time (sec) 3.27 6.32 92 Back Extrap Vol (L) 0.28 0.15 -45 Time To FEFmax (sec) 0.228 0.140 -38
== END ==
LOC: M CARPUL 10:43
PROVIDERS: ATTEND Nurse Practitioner Adult Health
DX: R06.02 Shortness of breath (principal)
CPT/HCPCS: 94070; 95070; J7674

== ENCOUNTER → 2021-02-16 | Outpatient (CLI) | payer OTHER ==
[~2021-02-16] MED LIST changes: -METHACHOLINE KIT (J7674) INH ONE
--- NOTE | 2021-02-17 09:47 | REP ---
INDICATION: OTH SIGNS/SYMPTOMS CIRC SYSTEM, SMOKER COMPARISON: None. TECHNIQUE: Modi scale and color Doppler evaluation using linear high frequency transducer Findings: FINDINGS: Two-dimensional modi scale and color images demonstrate normal arterial lumen with laminar flow and no appreciable narrowing. Color Doppler interrogation demonstrates normal arterial wave patterns and velocities with no significant spectral broadening. Normal flow direction is appreciated in the bilateral vertebral arteries. ICA peak systolic velocity: Right 78.8 cm/s; Left 72.6 cm/s ICA diastolic velocity: Right 35.9 cm/s; Left 31.7 cm/s ECA peak systolic velocity: Right 59.6 cm/s; Left 50.6 cm/s CCA peak systolic velocity: Right 96.1 cm/s; Left 101.8 cm/s ICA/CCA ratio: Right 0.82 cm/s; Left 0.71 cm/s IMPRESSION: No hemodynamically significant areas of narrowing or stenosis appreciated. Based on set standards narrowing falls within the less than 50% range. <Electronically signed by Anatoly Prado > 02/17/21 0944
== END ==
LOC: M RAD 10:54
PROVIDERS: ATTEND Internal Medicine Cardiovascular Disease
DX: R09.89 Other specified symptoms and signs involving the circulatory and respiratory systems (principal)

== ENCOUNTER 2021-02-24 14:26 | Emergency (ER) | payer OTHER ==
[~2021-02-24] VITALS: Ht 170.2 cm; Wt 48.9 kg
[2021-02-24 14:28] VITALS: BP 122/68
[2021-02-25] MEDS ORDERED: VENL150C43 (07:34)
[2021-02-25] MEDS ORDERED: HYDR-3363 (07:34)
[2021-02-25] MEDS ORDERED: BUPR1FIL3 (07:34)
[2021-02-25] MEDS ORDERED: MACR100C43 PO (13:53)
== END 2021-02-24 14:55 | disposition left against medical advice (07) ==
LOC: M ED 14:26
DX: Z53.21 Procedure and treatment not carried out due to patient leaving prior to being seen by health care provider (principal)

== ENCOUNTER 2021-02-25 07:20 | Emergency (ER) | payer OTHER ==
[~2021-02-25] VITALS: Ht 170.2 cm; Wt 49.9 kg
[2021-02-25] MEDS ORDERED: HYDR-3363 (07:34)
[2021-02-25] MEDS ORDERED: BUPR1FIL3 (07:34)
[2021-02-25] MEDS ORDERED: VENL150C43 (07:34)
[2021-02-25] MEDS ORDERED: NS 1,000 ML IV ONE (11:05)
[2021-02-25 11:32] LABS: BASO # 0.1 10^3/uL (0.0-0.2); BASO % 1.1 % (0.0-1.0); EOS # 0.1 10^3/uL (0.0-0.5); HEMOGLOBIN 11.8 g/dl (12.0-15.5); LYMPH # 1.2 10^3/uL (1.5-5.0); LYMPH % 24.9 % (24.0-44.0); MEAN CORPUSCULAR HGB CONC 32.8 g/dl (32.0-36.5); MEAN CORPUSCULAR VOLUME 94.5 fl (80.0-96.0); MONO # 0.3 10^3/uL (0.0-0.8); MONO % 5.6 % (2.0-8.0); NEUTROPHILS % 65.2 % (36.0-66.0); PLATELET COUNT, AUTOMATED 144 10^3/uL (150-450); RED BLOOD COUNT 3.81 10^6/uL (4.00-5.40); WHITE BLOOD COUNT 4.7 10^3/uL (4.0-10.0)
[2021-02-25 12:01] LABS: BLOOD UREA NITROGEN 16 MG/DL (7-18); CALCIUM LEVEL 8.8 MG/DL (8.5-10.1); CARBON DIOXIDE LEVEL 31 MEQ/L (21-32); CHLORIDE LEVEL 108 MEQ/L (98-107); CREATININE FOR GFR 0.91 MG/DL (0.55-1.30); GLOMERULAR FILTRATION RATE > 60.0 (>58); GLUCOSE, FASTING 106 MG/DL (70-100); POTASSIUM SERUM 4.2 MEQ/L (3.5-5.1); SODIUM LEVEL 141 MEQ/L (136-145)
[2021-02-25 12:03] LABS: HCG, SERUM QUALITATIVE NEGATIVE (NEGATIVE)
--- NOTE | 2021-02-25 12:56 | REP ---
INDICATION: abd vaginal bleeding. COMPARISON: 12/18/2018. TECHNIQUE: Transabdominal and transvaginal scanning performed. FINDINGS: Uterine dimensions are 8.0 x 4.4 x 6.6 cm. Endometrial echo is 3 mm in AP dimension and centrally placed. There is mild fluid in the endometrial canal. The bladder measures 9.9 x 6.1 x 11.0cm. There is debris in the bladder. The right ovary has dimensions of 3.4 x 2.1 x 2.3 cm. It's Doppler flow is normal with a resistive index of 0.45. The left ovary dimensions are 3.8 x 2.9 x 2.7 cm. It's Doppler flow was normal with resistive index of 0.63. There appears to be a resolving cyst or follicle in the right ovary 1.7 x 1.5 x 1.8 cm. There is a simple anechoic dominant follicle in the left ovary 2.2 cm in diameter. There is trace free fluid in the left adnexa. IMPRESSION: Small amount of fluid in the endometrial canal. Resolving cyst or follicle right ovary 1.8 cm, simple dominant follicle left ovary 2.2 cm. Trace free fluid. No torsion. There is debris in the urinary bladder. <Electronically signed by Quentin Modi > 02/25/21 1232
[2021-02-25] MEDS ORDERED: MACR100C43 PO (13:53)
[2021-02-25 14:08] VITALS: BP 105/56
== END 2021-02-25 14:13 | disposition home or self-care (01) ==
LOC: M ED 07:20
DX: N93.9 Abnormal uterine and vaginal bleeding, unspecified (principal); N83.291 Other ovarian cyst, right side; J44.9 Chronic obstructive pulmonary disease, unspecified; F41.9 Anxiety disorder, unspecified; Z98.84 Bariatric surgery status; F17.200 Nicotine dependence, unspecified, uncomplicated; Z88.0 Allergy status to penicillin; Z88.1 Allergy status to other antibiotic agents; Z91.040 Latex allergy status; Z79.899 Other long term (current) drug therapy

== ENCOUNTER → 2021-03-15 | Outpatient (CLI) | payer OTHER ==
[~2021-03-15] MED LIST changes: +BUPR1FIL3; +HYDR-3363; +MACR100C43 PO; +VENL150C43
[2021-03-15 11:32] LABS: CHOLESTEROL RISK RATIO 2.842 (<5)
== END ==
LOC: M LAB 10:05
PROVIDERS: ATTEND Internal Medicine Cardiovascular Disease
DX: E78.00 Pure hypercholesterolemia, unspecified (principal)

== ENCOUNTER → 2021-05-19 | Outpatient (CLI) | payer OTHER | LOC: M PLAIMG 13:08 | PROVIDERS: ATTEND Nurse Practitioner | DX: G25.0 Essential tremor (principal); R40.4 Transient alteration of awareness; R20.2 Paresthesia of skin; G31.84 Mild cognitive impairment of uncertain or unknown etiology; F41.1 Generalized anxiety disorder ==

== ENCOUNTER 2021-08-19 14:51 | Emergency (ER) | payer OTHER ==
[~2021-08-19] VITALS: Ht 167.6 cm; Wt 57.3 kg
[2021-08-19] MEDS ORDERED: OXCA150T21 (15:19)
[2021-08-19] MEDS ORDERED: NAPR-885 (15:19)
[2021-08-19] MEDS ORDERED: ARNU1INH (15:19)
[2021-08-19] MEDS ORDERED: VITA100093 (15:19)
[2021-08-19] MEDS ORDERED: MIRT-11 (15:19)
[2021-08-19] MEDS ORDERED: FERR32TA (15:19)
[2021-08-19] MEDS ORDERED: METOCLOPRAMIDE INJ 10MG/2ML VIAL (J2765 PER 1) IV ONE (15:45)
[2021-08-19] MEDS ORDERED: diphenhydrAMINE 50MG/ML VIAL (J1200) IV ONE (15:45)
[2021-08-19] MEDS ORDERED: KETOROLAC 30 MG/ML 1ML VIAL IV ONE (15:45)
[2021-08-19] MEDS ORDERED: NS 1,000 ML IV ONE (15:45)
[2021-08-19 17:25] VITALS: BP 87/58
== END 2021-08-19 17:26 | disposition home or self-care (01) ==
LOC: EDBD 14:51 → M ED 14:51
DX: G43.909 Migraine, unspecified, not intractable, without status migrainosus (principal); J45.909 Unspecified asthma, uncomplicated; Z86.19 Personal history of other infectious and parasitic diseases; Z98.84 Bariatric surgery status; F12.10 Cannabis abuse, uncomplicated; Z79.899 Other long term (current) drug therapy; Z88.8 Allergy status to other drugs, medicaments and biological substances; Z88.0 Allergy status to penicillin; Z91.89 Other specified personal risk factors, not elsewhere classified; Z91.040 Latex allergy status; Z91.013 Allergy to seafood
CPT/HCPCS: 70450; 96361; 96374; 96375; 99284; J1200; J1885; J2765

== ENCOUNTER → 2021-10-31 | Outpatient (CLI) | payer OTHER ==
[~2021-10-31] MED LIST changes: +ARNU1INH; +FERR32TA; +MIRT-11; +NAPR-885; +OXCA150T21; +VITA100093
[2021-10-31 13:00] LABS: BASO # 0.1 10^3/uL (0.0-0.2); EOS # 0.1 10^3/uL (0.0-0.5); EOS % 2.3 % (0.0-3.0); HEMOGLOBIN 13.7 g/dl (12.0-15.5); LYMPH # 1.4 10^3/uL (1.5-5.0); LYMPH % 22.9 % (24.0-44.0); MEAN CORPUSCULAR HEMOGLOBIN 32.7 pg (27.0-33.0); MEAN CORPUSCULAR HGB CONC 33.4 g/dl (32.0-36.5); MEAN CORPUSCULAR VOLUME 97.9 fl (80.0-96.0); MONO # 0.3 10^3/uL (0.0-0.8); MONO % 5.5 % (2.0-8.0); NEUTROPHILS # 4.1 10^3/uL (1.5-8.5); PLATELET COUNT, AUTOMATED 163 10^3/uL (150-450); RED BLOOD COUNT 4.19 10^6/uL (4.00-5.40)
[2021-10-31 13:25] LABS: ALBUMIN 3.9 GM/DL (3.2-5.2); ALT/SGPT 75 U/L (12-78); BILIRUBIN,TOTAL 0.3 MG/DL (0.2-1.0); BLOOD UREA NITROGEN 13 MG/DL (7-18); CALCIUM LEVEL 9.7 MG/DL (8.5-10.1); CARBON DIOXIDE LEVEL 27 MEQ/L (21-32); CHLORIDE LEVEL 109 MEQ/L (98-107); CREATININE FOR GFR 0.95 MG/DL (0.55-1.30); GLOMERULAR FILTRATION RATE > 60.0 (>58); GLUCOSE, FASTING 70 MG/DL (70-100); POTASSIUM SERUM 3.6 MEQ/L (3.5-5.1); SODIUM LEVEL 142 MEQ/L (136-145); TOTAL PROTEIN 7.1 GM/DL (6.4-8.2)
[2021-10-31 13:34] LABS: ERYTHROCYTE SEDIMENTATION RATE 7 mm/hr (0-20)
== END ==
LOC: M LAB 11:54
PROVIDERS: ATTEND Physician Assistant
DX: R07.9 Chest pain, unspecified (principal)

== ENCOUNTER → 2021-10-31 | Outpatient (CLI) | payer OTHER ==
[2021-10-31 13:05] LABS: BASO % 0.7 % (0.0-1.0); EOS # 0.1 10^3/uL (0.0-0.5); HEMATOCRIT 41.1 % (36.0-47.0); HEMOGLOBIN 13.7 g/dl (12.0-15.5); LYMPH # 1.3 10^3/uL (1.5-5.0); LYMPH % 22.5 % (24.0-44.0); MEAN CORPUSCULAR HEMOGLOBIN 32.5 pg (27.0-33.0); MEAN CORPUSCULAR HGB CONC 33.3 g/dl (32.0-36.5); MEAN CORPUSCULAR VOLUME 97.4 fl (80.0-96.0); MONO # 0.3 10^3/uL (0.0-0.8); MONO % 5.3 % (2.0-8.0); NEUTROPHILS # 4.1 10^3/uL (1.5-8.5); NEUTROPHILS % 69.3 % (36.0-66.0); PLATELET COUNT, AUTOMATED 162 10^3/uL (150-450); RED BLOOD COUNT 4.22 10^6/uL (4.00-5.40); WHITE BLOOD COUNT 5.9 10^3/uL (4.0-10.0)
[2021-10-31 13:28] LABS: HEMOGLOBIN A1c 5.2 %
[2021-10-31 13:36] LABS: ALT/SGPT 75 U/L (12-78); BILIRUBIN,TOTAL 0.3 MG/DL (0.2-1.0); BLOOD UREA NITROGEN 12 MG/DL (7-18); CALCIUM LEVEL 9.7 MG/DL (8.5-10.1); CARBON DIOXIDE LEVEL 27 MEQ/L (21-32); CHLORIDE LEVEL 110 MEQ/L (98-107); CREATININE FOR GFR 0.96 MG/DL (0.55-1.30); GLOMERULAR FILTRATION RATE > 60.0 (>58); GLUCOSE, FASTING 67 MG/DL (70-100); POTASSIUM SERUM 3.6 MEQ/L (3.5-5.1); RHEUMATOID FACTOR QUANT < 10.0 IU/ML (<15.0); SODIUM LEVEL 142 MEQ/L (136-145); TOTAL PROTEIN 7.1 GM/DL (6.4-8.2)
[2021-11-02 23:10] LABS: VITAMIN B12 LEVEL 1389 PG/ML (247-911)
[2021-11-03 14:04] LABS: ALBUMIN 4.62 GM/DL (3.29-5.55); ALBUMIN % 65.1 % (55.8-66.1); ALPHA-1-GLOBULIN % 4.4 % (2.9-4.9); ALPHA-1-GLOBULINS 0.31 GM/DL (0.17-0.41); ALPHA-2-GLOBULINS 0.67 GM/DL (0.42-0.99); ALPHA-2-GLOBULINS % 9.5 % (7.1-11.8); BETA-1-GLOBULINS 0.45 GM/DL (0.28-0.60); BETA-1-GLOBULINS % 6.3 % (4.7-7.2); BETA-2-GLOBULINS 0.28 GM/DL (0.19-0.55); GAMMA GLOBULIN % 10.7 % (11.1-18.8); GAMMA GLOBULINS 0.76 GM/DL (0.65-1.58)
== END ==
LOC: M LAB 11:57
PROVIDERS: ATTEND Nurse Practitioner
DX: R40.4 Transient alteration of awareness (principal)

== ENCOUNTER → 2022-04-01 | Outpatient (REF) | payer OTHER ==
[2022-04-01 17:11] LABS: BASO # 0.1 10^3/uL (0.0-0.2); BASO % 0.8 % (0.0-1.0); EOS # 0.1 10^3/uL (0.0-0.5); EOS % 1.1 % (0.0-3.0); HEMATOCRIT 42.5 % (36.0-47.0); HEMOGLOBIN 14.1 g/dl (12.0-15.5); LYMPH # 1.2 10^3/uL (1.5-5.0); LYMPH % 18.6 % (24.0-44.0); MEAN CORPUSCULAR HGB CONC 33.2 g/dl (32.0-36.5); MEAN CORPUSCULAR VOLUME 96.6 fl (80.0-96.0); MONO # 0.2 10^3/uL (0.0-0.8); MONO % 3.6 % (2.0-8.0); NEUTROPHILS # 4.9 10^3/uL (1.5-8.5); NEUTROPHILS % 75.6 % (36.0-66.0); PLATELET COUNT, AUTOMATED 174 10^3/uL (150-450); WHITE BLOOD COUNT 6.5 10^3/uL (4.0-10.0)
[2022-04-01 18:03] LABS: ALT/SGPT 17 U/L (12-78); BILIRUBIN,TOTAL 0.4 MG/DL (0.2-1.0); BLOOD UREA NITROGEN 17 MG/DL (7-18); CALCIUM LEVEL 9.1 MG/DL (8.5-10.1); CARBON DIOXIDE LEVEL 28 MEQ/L (21-32); CHLORIDE LEVEL 107 MEQ/L (98-107); CHOLESTEROL LEVEL 190 MG/DL (<200); CREATININE FOR GFR 0.88 MG/DL (0.55-1.30); GLOMERULAR FILTRATION RATE > 60.0 (>58); GLUCOSE, FASTING 132 MG/DL (70-100); HDL CHOLESTEROL 59 MG/DL (>40); LDL CHOLESTEROL 110 MG/DL (<100); NON-HDL-C 131 MG/DL; POTASSIUM SERUM 3.9 MEQ/L (3.5-5.1); SODIUM LEVEL 138 MEQ/L (136-145); TOTAL PROTEIN 6.8 GM/DL (6.4-8.2); TRIGLYCERIDES LEVEL 105 MG/DL (<150)
== END ==
LOC: M LAB REF 16:38
PROVIDERS: ATTEND Family Medicine Addiction Medicine
DX: R09.89 Other specified symptoms and signs involving the circulatory and respiratory systems (principal); R63.6 Underweight

== ENCOUNTER 2023-11-10 16:18 | Emergency (ER) | payer OTHER ==
[~2023-11-10] VITALS: Ht 165.1 cm; Wt 55.1 kg
[2023-11-10 16:40] VITALS: BP 110/63; TEMP 97.6; O2SAT 100
[2023-11-10] MEDS ORDERED: BUSP10TA (16:58)
[2023-11-10 21:54] LABS: BASO # 0.1 10^3/uL (0.0-0.2); BASO % 0.5 % (0.0-1.0); EOS # 0.2 10^3/uL (0.0-0.5); EOS % 1.6 % (0.0-3.0); HEMATOCRIT 40.8 % (36.0-47.0); HEMOGLOBIN 13.9 g/dl (12.0-15.5); LYMPH # 1.1 10^3/uL (1.5-5.0); LYMPH % 12.1 % (24.0-44.0); MEAN CORPUSCULAR HEMOGLOBIN 33.3 pg (27.0-33.0); MEAN CORPUSCULAR HGB CONC 34.1 g/dl (32.0-36.5); MEAN CORPUSCULAR VOLUME 97.6 fl (80.0-96.0); MONO # 0.5 10^3/uL (0.0-0.8); MONO % 5.8 % (2.0-8.0); NEUTROPHILS # 7.2 10^3/uL (1.5-8.5); NEUTROPHILS % 79.7 % (36.0-66.0); PLATELET COUNT, AUTOMATED 178 10^3/uL (150-450); RED BLOOD COUNT 4.18 10^6/uL (4.00-5.40); WHITE BLOOD COUNT 9.1 10^3/uL (4.0-10.0)
[2023-11-10 22:23] LABS: BLOOD UREA NITROGEN 12 MG/DL (9-23); CALCIUM LEVEL 9.1 MG/DL (8.5-10.1); CARBON DIOXIDE LEVEL 30 MMOL/L (20-31); CHLORIDE LEVEL 107 MMOL/L (98-107); CREATININE FOR GFR 0.93 MG/DL (0.55-1.30); GLOMERULAR FILTRATION RATE > 60.0 (>58); GLUCOSE, FASTING 81 MG/DL (60-100); POTASSIUM SERUM 4.1 MMOL/L (3.5-5.1); SODIUM LEVEL 140 MMOL/L (136-145)
[2023-11-10 22:24] LABS: CPK CREATINE PHOSPHOKINASE 147 U/L (34-145)
== END 2023-11-10 22:39 | disposition left against medical advice (07) ==
LOC: M ED 16:18
DX: G40.89 Other seizures (principal); J45.909 Unspecified asthma, uncomplicated; F17.200 Nicotine dependence, unspecified, uncomplicated; Z98.84 Bariatric surgery status; Z88.0 Allergy status to penicillin; Z88.8 Allergy status to other drugs, medicaments and biological substances; Z91.013 Allergy to seafood; Z91.040 Latex allergy status; Z91.048 Other nonmedicinal substance allergy status; Z79.52 Long term (current) use of systemic steroids; Z79.1 Long term (current) use of non-steroidal anti-inflammatories (NSAID); Z79.899 Other long term (current) drug therapy; Z53.9 Procedure and treatment not carried out, unspecified reason

== ENCOUNTER 2023-12-04 17:51 | Emergency (ER) | payer OTHER ==
[~2023-12-04] VITALS: Ht 167.6 cm; Wt 60.9 kg
[~2023-12-04 17:51] MED LIST changes: +BUSP10TA
[2023-12-04 21:08] LABS: BASO % 0.7 % (0.0-1.0); EOS # 0.2 10^3/uL (0.0-0.5); EOS % 3.3 % (0.0-3.0); HEMATOCRIT 39.3 % (36.0-47.0); HEMOGLOBIN 13.2 g/dl (12.0-15.5); LYMPH # 1.3 10^3/uL (1.5-5.0); LYMPH % 21.6 % (24.0-44.0); MEAN CORPUSCULAR HEMOGLOBIN 33.8 pg (27.0-33.0); MEAN CORPUSCULAR HGB CONC 33.6 g/dl (32.0-36.5); MEAN CORPUSCULAR VOLUME 100.8 fl (80.0-96.0); MONO # 0.3 10^3/uL (0.0-0.8); NEUTROPHILS % 69.1 % (36.0-66.0); PLATELET COUNT, AUTOMATED 165 10^3/uL (150-450); WHITE BLOOD COUNT 5.8 10^3/uL (4.0-10.0)
[2023-12-04] MEDS: KETOROLAC 30 MG/ML 1ML VIAL IV ONE (21:14)
[2023-12-04 21:30] LABS: ALBUMIN 3.4 G/DL (3.2-5.2); ALKALINE PHOSPHATASE 62 U/L (46-116); ALT/SGPT 16 U/L (7.0-40); AST/SGOT 19 U/L (<34); BILIRUBIN,TOTAL 0.2 MG/DL (0.3-1.2); BLOOD UREA NITROGEN 13 MG/DL (9-23); CALCIUM LEVEL 9.2 MG/DL (8.5-10.1); CARBON DIOXIDE LEVEL 29 MMOL/L (20-31); CHLORIDE LEVEL 109 MMOL/L (98-107); CREATININE FOR GFR 0.89 MG/DL (0.55-1.30); GLOMERULAR FILTRATION RATE > 60.0 (>58); GLUCOSE, FASTING 105 MG/DL (60-100); SODIUM LEVEL 141 MMOL/L (136-145); TOTAL PROTEIN 5.5 G/DL (5.7-8.2)
[2023-12-04 22:37] VITALS: BP 103/51; TEMP 97; O2SAT 98
[2023-12-04] MEDS ORDERED: TRUFMIS MC (22:40)
== END 2023-12-04 22:49 | disposition home or self-care (01) ==
LOC: M ED 17:51
DX: R22.43 Localized swelling, mass and lump, lower limb, bilateral (principal); J45.909 Unspecified asthma, uncomplicated; F17.200 Nicotine dependence, unspecified, uncomplicated; G93.41 Metabolic encephalopathy; Z98.84 Bariatric surgery status; Z88.0 Allergy status to penicillin; Z88.1 Allergy status to other antibiotic agents; Z91.048 Other nonmedicinal substance allergy status; Z91.040 Latex allergy status; Z91.013 Allergy to seafood; Z79.52 Long term (current) use of systemic steroids; Z79.1 Long term (current) use of non-steroidal anti-inflammatories (NSAID); Z79.899 Other long term (current) drug therapy
CPT/HCPCS: 71046; 80053; 83880; 85025; 93971; 96374; 99283; J1885

== ENCOUNTER → 2024-02-28 | Outpatient (REF) | payer OTHER ==
[~2024-02-28] MED LIST changes: +TRUFMIS MC
[2024-02-28 13:53] LABS: BASO # 0.1 10^3/uL (0.0-0.2); BASO % 0.9 % (0.0-1.0); EOS # 0.2 10^3/uL (0.0-0.5); EOS % 3.1 % (0.0-3.0); HEMOGLOBIN 14.8 g/dl (12.0-15.5); LYMPH # 1.3 10^3/uL (1.5-5.0); LYMPH % 23.3 % (24.0-44.0); MEAN CORPUSCULAR HGB CONC 33.6 g/dl (32.0-36.5); MEAN CORPUSCULAR VOLUME 98.2 fl (80.0-96.0); MONO # 0.4 10^3/uL (0.0-0.8); MONO % 6.6 % (2.0-8.0); NEUTROPHILS # 3.6 10^3/uL (1.5-8.5); NEUTROPHILS % 65.9 % (36.0-66.0); PLATELET COUNT, AUTOMATED 162 10^3/uL (150-450); RED BLOOD COUNT 4.48 10^6/uL (4.00-5.40); WHITE BLOOD COUNT 5.5 10^3/uL (4.0-10.0)
[2024-02-28 14:00] LABS: FREE T4 1.03 NG/DL (0.89-1.76); THYROID STIMULATING HORMONE 1.616 uIU/ML (0.55-4.78)
[2024-02-28 14:01] LABS: ALBUMIN 4.4 G/DL (3.2-5.2); ALKALINE PHOSPHATASE 75 U/L (46-116); ALT/SGPT 13 U/L (7.0-40); AST/SGOT 14 U/L (<34); BILIRUBIN,TOTAL 0.4 MG/DL (0.3-1.2); BLOOD UREA NITROGEN 13 MG/DL (9-23); CALCIUM LEVEL 10.2 MG/DL (8.5-10.1); CARBON DIOXIDE LEVEL 30 MMOL/L (20-31); CHLORIDE LEVEL 108 MMOL/L (98-107); CHOLESTEROL LEVEL 211 MG/DL (<200); CHOLESTEROL RISK RATIO 2.95 (<5); CREATININE FOR GFR 0.95 MG/DL (0.55-1.30); GLOMERULAR FILTRATION RATE > 60.0 (>58); GLUCOSE, FASTING 64 MG/DL (60-100); HDL CHOLESTEROL 71.4 MG/DL (>40); IRON (FE) 97 UG/DL (50-170); NON-HDL-C 139.6 MG/DL; POTASSIUM SERUM 4.1 MMOL/L (3.5-5.1); SODIUM LEVEL 142 MMOL/L (136-145); TOTAL PROTEIN 7.2 G/DL (5.7-8.2); TRIGLYCERIDES LEVEL 123 MG/DL (<150)
[2024-02-28 14:06] LABS: HEMOGLOBIN A1c 5.2 % (4.0-6.0)
[2024-02-28 14:25] LABS: HIV 1&2 SCREEN NEGATIVE (NEGATIVE)
== END ==
LOC: M LAB REF 13:10
PROVIDERS: ATTEND Family Medicine Addiction Medicine
DX: R73.9 Hyperglycemia, unspecified (principal); D50.9 Iron deficiency anemia, unspecified

== ENCOUNTER 2024-06-15 10:12 | Emergency (ER) | payer OTHER ==
[~2024-06-15] VITALS: Ht 167.6 cm; Wt 59.1 kg
[2024-06-15] MEDS ORDERED: SUBO12MI (10:23)
[2024-06-15] MEDS ORDERED: SUMA100T2 (10:23)
[2024-06-15] MEDS ORDERED: AMPH1CAP14 (10:23)
[2024-06-15 13:27] VITALS: TEMP 97.6
[2024-06-15 15:25] VITALS: BP 101/55; O2SAT 99
[2024-06-15] MEDS ORDERED: AZIT-12 PO (16:01)
[2024-06-15] MEDS ORDERED: PRED20TA PO (16:01)
== END 2024-06-15 16:15 | disposition home or self-care (01) ==
LOC: M ED 10:12
DX: H93.13 Tinnitus, bilateral (principal); Z88.0 Allergy status to penicillin; Z88.1 Allergy status to other antibiotic agents; Z91.041 Radiographic dye allergy status; Z91.040 Latex allergy status; J45.909 Unspecified asthma, uncomplicated

== ENCOUNTER → 2024-07-05 | Outpatient (CLI) | payer OTHER ==
[~2024-07-05] MED LIST changes: +AMPH1CAP14; +AZIT-12 PO; +SUBO12MI; +SUMA100T2
== END ==
LOC: M SOG 07:44
PROVIDERS: ATTEND Physician Assistant
DX: M25.561 Pain in right knee (principal)

== ENCOUNTER 2024-09-12 07:21 | Emergency (ER) | payer OTHER ==
[~2024-09-12] VITALS: Ht 167.6 cm; Wt 57.0 kg
[2024-09-12 07:27] VITALS: BP 124/57; TEMP 96.8; O2SAT 100
== END 2024-09-12 08:56 | disposition left against medical advice (07) ==
LOC: M ED 07:21
DX: Z53.21 Procedure and treatment not carried out due to patient leaving prior to being seen by health care provider (principal)

== ENCOUNTER → 2024-10-26 | Outpatient (REF) | payer OTHER ==
[2024-10-26 15:55] LABS: BASO % 0.7 % (0.0-1.0); EOS # 0.1 10^3/uL (0.0-0.5); EOS % 2.4 % (0.0-3.0); HEMATOCRIT 41.4 % (36.0-47.0); HEMOGLOBIN 13.7 g/dl (12.0-15.5); LYMPH # 1.3 10^3/uL (1.5-5.0); LYMPH % 22.7 % (24.0-44.0); MEAN CORPUSCULAR HEMOGLOBIN 32.2 pg (27.0-33.0); MEAN CORPUSCULAR HGB CONC 33.1 g/dl (32.0-36.5); MEAN CORPUSCULAR VOLUME 97.4 fl (80.0-96.0); MONO # 0.4 10^3/uL (0.0-0.8); MONO % 6.6 % (2.0-8.0); NEUTROPHILS % 67.3 % (36.0-66.0); PLATELET COUNT, AUTOMATED 156 10^3/uL (150-450); RED BLOOD COUNT 4.25 10^6/uL (4.00-5.40); WHITE BLOOD COUNT 5.9 10^3/uL (4.0-10.0)
[2024-10-26 16:03] LABS: ALBUMIN 3.9 G/DL (3.2-5.2); ALKALINE PHOSPHATASE 131 U/L (35-104); ALT/SGPT 69 U/L (7.0-40); AST/SGOT 44 U/L (<34); BILIRUBIN,TOTAL 0.2 MG/DL (0.3-1.2); BLOOD UREA NITROGEN 18 MG/DL (9-23); CALCIUM LEVEL 9.3 MG/DL (8.5-10.1); CARBON DIOXIDE LEVEL 32 MMOL/L (20-31); CHLORIDE LEVEL 105 MMOL/L (98-107); CREATININE FOR GFR 0.75 MG/DL (0.55-1.30); GLOMERULAR FILTRATION RATE > 90.0 (>58); GLUCOSE, FASTING 79 MG/DL (60-100); POTASSIUM SERUM 4.2 MMOL/L (3.5-5.1); SODIUM LEVEL 143 MMOL/L (136-145); TOTAL PROTEIN 6.6 G/DL (5.7-8.2)
[2024-10-26 16:05] LABS: FREE T4 1.05 NG/DL (0.89-1.76); THYROID STIMULATING HORMONE 3.607 uIU/ML (0.55-4.78); VITAMIN B12 LEVEL 478 PG/ML (211-911)
== END ==
LOC: M LAB REF 14:52
PROVIDERS: ATTEND Family Medicine Addiction Medicine
DX: R42 Dizziness and giddiness (principal)

== ENCOUNTER → 2025-01-11 | Outpatient (REF) | payer OTHER ==
[2025-01-11 13:55] LABS: BASO # 0.1 10^3/uL (0.0-0.2); BASO % 0.9 % (0.0-1.0); EOS # 0.1 10^3/uL (0.0-0.5); EOS % 2.4 % (0.0-3.0); LYMPH # 1.4 10^3/uL (1.5-5.0); LYMPH % 24.7 % (24.0-44.0); MONO # 0.3 10^3/uL (0.0-0.8); MONO % 5.9 % (2.0-8.0); NEUTROPHILS # 3.6 10^3/uL (1.5-8.5); NEUTROPHILS % 65.7 % (36.0-66.0); PLATELET COUNT, AUTOMATED 194 10^3/uL (150-450)
[2025-01-11 14:02] LABS: ALT/SGPT 17 U/L (7.0-40); AST/SGOT 21 U/L (<34); CALCIUM LEVEL 9.4 MG/DL (8.5-10.1); CARBON DIOXIDE LEVEL 30 MMOL/L (20-31); CHLORIDE LEVEL 104 MMOL/L (98-107); CHOLESTEROL LEVEL 180 MG/DL (<200); CHOLESTEROL RISK RATIO 2.57 (<5); CREATININE FOR GFR 0.80 MG/DL (0.55-1.30); GLOMERULAR FILTRATION RATE > 90.0 (>58); LDL CHOLESTEROL 98.5 MG/DL (<100); NON-HDL-C 110.1 MG/DL; POTASSIUM SERUM 4.1 MMOL/L (3.5-5.1); SODIUM LEVEL 141 MMOL/L (136-145); TRIGLYCERIDES LEVEL 58 MG/DL (<150)
[2025-01-11 14:19] LABS: Trichomonas vaginalis (AMP) NOT DETECTED (NEGATIVE)
[2025-01-11 14:36] LABS: HIV 1&2 SCREEN NEGATIVE (NEGATIVE)
[2025-01-11 14:38] LABS: ESTIMATED AVERAGE GLUCOSE 103.0 MG/DL (60-110)
[2025-01-11 14:43] LABS: GC DNA AMPLIFICATION NEGATIVE (NEGATIVE)
[2025-01-11 14:49] LABS: HEPATITIS C VIRUS ABY INDEX 8.24 INDEX (<0.8)
[2025-01-13 12:08] LABS: HCV RNA QUANTITATION <15 NOT DETECTED IU/mL (NOT DETECTED); HCV RNA log10 <1.18 NOT DETECTED Log IU/mL (NOT DETECTED)
== END ==
LOC: M LAB REF 12:20
PROVIDERS: ATTEND Family Medicine Addiction Medicine
DX: R73.9 Hyperglycemia, unspecified (principal); Z11.3 Encounter for screening for infections with a predominantly sexual mode of transmission

== ENCOUNTER 2025-02-17 18:50 | Emergency (ER) | payer OTHER ==
[~2025-02-17] VITALS: Ht 167.6 cm; Wt 57.7 kg
[2025-02-17] MEDS ORDERED: LORA2CON5 PO (19:05)
[2025-02-17] MEDS ORDERED: ASPI81CH33 PO (19:05)
[2025-02-17 19:50] LABS: BASO # 0.1 10^3/uL (0.0-0.2); BASO % 0.9 % (0.0-1.0); EOS # 0.2 10^3/uL (0.0-0.5); EOS % 3.1 % (0.0-3.0); LYMPH # 1.3 10^3/uL (1.5-5.0); LYMPH % 23.9 % (24.0-44.0); MONO # 0.4 10^3/uL (0.0-0.8); MONO % 8.0 % (2.0-8.0); NEUTROPHILS # 3.5 10^3/uL (1.5-8.5); NEUTROPHILS % 63.9 % (36.0-66.0); PLATELET COUNT, AUTOMATED 137 10^3/uL (150-450)
[2025-02-17 20:12] LABS: ALT/SGPT 21 U/L (7.0-40); AST/SGOT 22 U/L (<34); CALCIUM LEVEL 9.2 MG/DL (8.5-10.1); CARBON DIOXIDE LEVEL 30 MMOL/L (20-31); CHLORIDE LEVEL 110 MMOL/L (98-107); CREATININE FOR GFR 0.82 MG/DL (0.55-1.30); GLOMERULAR FILTRATION RATE 89.8 (>58); MAGNESIUM LEVEL 2.0 MG/DL (1.8-2.4); PHOSPHORUS LEVEL 4.1 MG/DL (2.5-4.9); POTASSIUM SERUM 4.6 MMOL/L (3.5-5.1); SODIUM LEVEL 146 MMOL/L (136-145)
[2025-02-17] MEDS ORDERED: MIDAZOLAM 5 MG/ML 1 ML VIAL As Ordered ONE (20:33)
[2025-02-17] MEDS ORDERED: MIDAZOLAM INJ 2 MG/2 ML VIAL IV ONE (20:35)
[2025-02-17 21:18] LABS: FREE T4 1.17 NG/DL (0.89-1.76)
[2025-02-17 21:44] LABS: KETONE, URINE AUTO RFX TRACE mg/dL (NEGATIVE); MUCUS, URINE RFX SMALL (NEGATIVE); NITRITE, URINE AUTO RFX NEGATIVE (NEGATIVE); RBC, URINE AUTO RFX 9 /HPF (0-3); SQUAM EPITHELIAL CELL UR AURFX 30 /HPF (0-6)
[2025-02-17 21:46] LABS: LEUKOCYTE ESTERASE UR AUTO RFX 1+ (NEGATIVE); WBC, URINE AUTO RFX 32 /HPF (0-3)
[2025-02-17 22:25] LABS: BARBITURATES URINE NEGATIVE (NEGATIVE)
[2025-02-17 22:26] LABS: BENZODIAZEPINES URINE NEGATIVE (NEGATIVE); CANNABINOIDS URINE NEGATIVE (NEGATIVE); COCAINE METABOLITE URINE NEGATIVE (NEGATIVE); METHADONE URINE NEGATIVE (NEGATIVE); OPIATES URINE NEGATIVE (NEGATIVE); PHENCYCLIDINE URINE NEGATIVE (NEGATIVE)
[2025-02-17 22:34] LABS: AMPHETAMINES LEVEL URINE POSITIVE (NEGATIVE)
[2025-02-17 23:09] LABS: HCG, SERUM QUANTITATIVE < 2.6 MIU/ML (<4.2)
[2025-02-18 00:50] VITALS: BP 112/48; TEMP 97.1; O2SAT 99
== END 2025-02-18 00:55 | disposition home or self-care (01) ==
LOC: M ED 18:50
DX: F41.0 Panic disorder [episodic paroxysmal anxiety] (principal); F19.11 Other psychoactive substance abuse, in remission; J45.909 Unspecified asthma, uncomplicated; B19.20 Unspecified viral hepatitis C without hepatic coma; Z98.84 Bariatric surgery status; Z88.2 Allergy status to sulfonamides; Z88.1 Allergy status to other antibiotic agents; Z88.8 Allergy status to other drugs, medicaments and biological substances; Z91.013 Allergy to seafood; Z91.040 Latex allergy status; Z91.030 Bee allergy status; Z79.52 Long term (current) use of systemic steroids; Z79.899 Other long term (current) drug therapy

== ENCOUNTER → 2025-02-27 | Outpatient (REF) | payer MEDICAID, OTHER ==
[~2025-02-27] MED LIST changes: +ASPI81CH33 PO; +LORA2CON5 PO
[2025-02-27 15:02] LABS: Trichomonas vaginalis (AMP) NOT DETECTED (NEGATIVE)
[2025-02-27 15:26] LABS: GC DNA AMPLIFICATION NEGATIVE (NEGATIVE)
[2025-03-01 13:18] LABS: HPV APTIMA Not Detected (Not Detected)
== END ==
LOC: M SFHCWAGY 13:12
PROVIDERS: ATTEND Obstetrics & Gynecology
DX: Z12.4 Encounter for screening for malignant neoplasm of cervix (principal); Z11.3 Encounter for screening for infections with a predominantly sexual mode of transmission

== ENCOUNTER → 2025-02-27 | Outpatient (CLI) | payer MEDICAID, OTHER | LOC: M WHC 11:23 | PROVIDERS: ATTEND Obstetrics & Gynecology | DX: Z01.419 Encounter for gynecological examination (general) (routine) without abnormal findings (principal) ==

== ENCOUNTER → 2025-03-12 | Outpatient (CLI) | payer MEDICAID, OTHER ==
[2025-03-12 12:20] LABS: HIV 1&2 SCREEN NEGATIVE (NEGATIVE)
== END ==
LOC: M PLALAB 02-27 11:42
PROVIDERS: ATTEND Obstetrics & Gynecology
DX: Z11.3 Encounter for screening for infections with a predominantly sexual mode of transmission (principal)

== ENCOUNTER → 2025-04-03 | Outpatient (REF) | payer OTHER ==
[2025-04-03 15:56] LABS: BASO # 0.1 10^3/uL (0.0-0.2); BASO % 0.8 % (0.0-1.0); EOS # 0.2 10^3/uL (0.0-0.5); EOS % 3.0 % (0.0-3.0); LYMPH # 1.8 10^3/uL (1.5-5.0); LYMPH % 29.2 % (24.0-44.0); MONO # 0.3 10^3/uL (0.0-0.8); MONO % 5.4 % (2.0-8.0); NEUTROPHILS # 3.7 10^3/uL (1.5-8.5); NEUTROPHILS % 61.4 % (36.0-66.0); PLATELET COUNT, AUTOMATED 160 10^3/uL (150-450)
[2025-04-03 16:02] LABS: ALT/SGPT 28.0 U/L (7.0-40); AST/SGOT 37.0 U/L (<34); CALCIUM LEVEL 9.7 MG/DL (8.5-10.1); CARBON DIOXIDE LEVEL 32.0 MMOL/L (20-31); CHLORIDE LEVEL 105.0 MMOL/L (98-107); CREATININE FOR GFR 0.85 MG/DL (0.55-1.30); GLOMERULAR FILTRATION RATE 86.1 (>58); MAGNESIUM LEVEL 1.9 MG/DL (1.8-2.4); POTASSIUM SERUM 4.4 MMOL/L (3.5-5.1); SODIUM LEVEL 144.0 MMOL/L (136-145)
== END ==
LOC: M LAB REF 14:59
PROVIDERS: ATTEND Family Medicine Addiction Medicine
DX: R63.4 Abnormal weight loss (principal)

== ENCOUNTER → 2025-05-21 | Outpatient (CLI) | payer OTHER | LOC: M PLAIMG 13:09 | PROVIDERS: ATTEND Family Medicine Addiction Medicine | DX: R56.9 Unspecified convulsions (principal) ==